=== PATIENT | male | born 1940 | race Caucasian/White ===

== ENCOUNTER → 2018-03-03 08:57 | Outpatient (CLI) | payer MEDICARE, OTHER, SELFPAY ==
[2018-03-03 10:18] LABS: Absolute Lymphocyte Count 4.66 X10^3/ul (0.83-4.51); Absolute Neutrophil Count 4.7 X10^3/uL (2.0-7.7); Basophil# 0.02 X10^3/uL; Basophil% 0.2 % (0-1); Eosinophil# 0.13 X10^3/uL; Eosinophils% 1.2 % (0-5); Hematocrit 48.4 % (40-54); Lymphocyte # 4.66 X10^3/ul (4.0); Lymphocyte % 43.9 % (19-41); Mean Corp Hgb Conc 33.1 g/gl (32-36); Mean Corpuscular Hgb 28.3 pg (27.0-32.0); Mean Corpuscular Volume 85.5 fL (80-94); Monocyte# 1.06 X10^3/uL; Neutrophil % 44.3 % (47-70); Platelet Count 242 K/mm3 (150-450); RBC Distribution Width CV 14.5 % (11.6-14.6); RBC Distribution Width SD 45.2 fl (35.1-43.9); Red Blood Count 5.66 M/mm3 (4.6-6.2); White Blood Count 10.6 K/mm3 (4.4-11.0)
[2018-03-03 10:19] LABS: POSITIVE COUNT NO; POSITIVE DIFFERENTIAL NO; POSITIVE MORPHOLOGY NO
[2018-03-03 10:53] LABS: ALB/GLOB Ratio 0.9 RATIO (0.9-2.4); AST(SGOT) 17 U/L (15-37); Alanine Aminotransfer ALT/SGPT 35 U/L (16-61); Albumin, Serum 4.1 g/dL (3.2-5.0); Alkaline Phosphatase 92 U/L (45-117); Anion Gap 8 (5-15); BUN 18 mg/dL (7-18); BUN/Creat Ratio 16.5 RATIO (10-20); Calcium,Total 8.9 mg/dL (8.5-10.1); Chloride 104 mmol/L (98-107); Creatinine, Serum 1.09 mg/dL (0.70-1.30); EST Glomerular Filtration Rate 70 mL/min (>60); Est Glom Filt Rate - Afr Amer 84 mL/min (>60); Globulin 4.4 g/dL (2.2-4.2); Glucose 122 mg/dL (74-106); Potassium 3.7 mmol/L (3.5-5.1); Protein, Total 8.5 g/dL (6.4-8.2); Sodium Level 137 mmol/L (136-145)
== END ==
PROVIDERS: Family Provider Internal Medicine; PCP Internal Medicine; Visit Provider Internal Medicine Rheumatology
DX: M35.00 Sjogren syndrome, unspecified (principal); M47.897 Other spondylosis, lumbosacral region; M17.0 Bilateral primary osteoarthritis of knee; M70.62 Trochanteric bursitis, left hip; M16.0 Bilateral primary osteoarthritis of hip; E03.9 Hypothyroidism, unspecified; E78.5 Hyperlipidemia, unspecified; E11.9 Type 2 diabetes mellitus without complications; R00.2 Palpitations; I10 Essential (primary) hypertension
CPT/HCPCS: 36415; 80053; 85025

== ENCOUNTER → 2018-03-14 10:30 | Outpatient (CLI) | payer MEDICARE, OTHER, SELFPAY ==
--- NOTE | 2018-03-14 10:30 | DT_ITS ---
This patient was seen during an EMR downtime March 14, 2018 - March 21, 2018. This patient may have a combination of paper and electronic documentation or all paper documentation. All documentation is viewable within the e-chart portion of [facility] for each patient visit.
--- NOTE | 2018-03-14 10:40 | RAD_ITS ---
STUDY: X-RAY - PELVIS AND LEFT HIP REASON FOR EXAM: Left hip and low back pain, no specific injury. TECHNIQUE: Radiological exam, hip, unilateral, with pelvis when performed; 2 or 3 views. COMPARISON: Radiograph report 04/08/2015. FINDINGS: There are pelvic phleboliths. There is enthesopathy of the iliac wings bilaterally. Normal bilateral superior and inferior pubic rami. There mild degenerative changes of the pubic symphysis. There is mild enthesopathy of the bilateral ischial tuberosities. There are very small marginal osteophytes of the femoral heads bilaterally. Normal left acetabulum. Normal left hip joint. RAD/Hip 2-3 Views with Pelvis IMPRESSION: Very small marginal osteophytes of the femoral heads bilaterally. Enthesopathy. Electronically Signed: Amilcar Alejandro MD at 12:57 EDT Tel , Service support ,
== END ==
PROVIDERS: Family Provider Internal Medicine; PCP Internal Medicine; Visit Provider Internal Medicine Rheumatology
DX: M35.00 Sjogren syndrome, unspecified (principal); M47.897 Other spondylosis, lumbosacral region; M17.0 Bilateral primary osteoarthritis of knee; M70.62 Trochanteric bursitis, left hip; M16.0 Bilateral primary osteoarthritis of hip; R00.2 Palpitations; E03.9 Hypothyroidism, unspecified; E78.5 Hyperlipidemia, unspecified; E11.9 Type 2 diabetes mellitus without complications; G62.9 Polyneuropathy, unspecified; I10 Essential (primary) hypertension
CPT/HCPCS: 73502

== ENCOUNTER → 2018-05-03 10:44 | Outpatient (CLI) | payer MEDICARE, OTHER, SELFPAY ==
--- NOTE | 2018-05-03 10:49 | ECHOD_ITS ---
Reason For Study: murmur Procedure This was a 2D Doppler, Color Flow transthoracic echocardiogram. The exam was of poor technical quality due to body habitus. The study was technically difficult. Exam performed in department. Left Ventricle Normal LV size. Mild concentric left ventricular hypertrophy. Left ventricular systolic function is normal. The estimated ejection fraction is 55 %. Diastolic function: considered indeterminate. No regional wall motion abnormalities noted. Right Ventricle Normal RV size. Normal systolic function. Atria Normal left atrium. Normal right atrium. No doppler evidence for ASD. Mitral Valve There is no mitral annular calcification. Normal mitral valve. Trivial mitral valve insufficiency. Tricuspid Valve Normal tricuspid valve. Mild tricuspid valve insufficiency. Right ventricular systolic pressure estimated to be 31 mmHg. Aortic Valve Trisinus/trileaflet aortic valve. Mild diffuse aortic valve thickening. Moderate diffuse aortic valve calcification. Aortic sclerosis, no stenosis. Trivial aortic valve insufficiency. Pulmonic Valve The pulmonic valve is not well visualized. Great Vessels Normal sized aortic root. Calcified aortic root. Pericardium/Pleural No pericardial effusion. MMode/2D Measurements & Calculations LVIDd: 5.2 cm IVSd: 1.3 cm LVOT diam: 2.6 cm LVIDs: 3.7 cm LVPWd: 1.4 cm LVOT area: 5.2 cm2 RVDd: 3.5 cm FS: 28.4 % Ao root diam: 3.6 cm LAV(MOD-bp): 58.1 ml LA A4 area: 18.3 cm2 LAV(MOD-bp) Indexed: 24.8 ml/m2 LAV(MOD-sp2): 66.1 ml LAV(MOD-sp4): 45.2 ml RA A4 area: 18.6 cm2 Doppler Measurements & Calculations MV E max christiano: 61.5 cm/sec Lat Peak E' Christiano: 8.8 cm/sec Med Peak E' Christiano: 7.2 cm/sec MV A max christiano: 92.4 cm/sec E/E' lat: 7.0 E/E' med: 8.5 MV E/A: 0.67 Ao V2 max: 206.6 cm/sec AI max christiano: 297.6 cm/sec LV V1 max: 98.6 cm/sec Ao max P.1 mmHg AI max P.5 mmHg LV V1 max P.9 mmHg Ao V2 mean: 135.9 cm/sec AI dec slope: 99.7 cm/sec2 LV V1 mean P.9 mmHg Ao mean P.2 mmHg AI P1/2t: 874.0 msec LV V1 mean: 66.0 cm/sec Ao V2 VTI: 41.8 cm LV V1 VTI: 22.1 cm EDUARDA(I,D): 2.8 cm2 EDUARDA(V,D): 2.5 cm2 SV(LVOT): 115.6 ml PA V2 max: 145.3 cm/sec TR max christiano: 265.1 cm/sec TR max P.2 mmHg Interpretation Summary The study was technically difficult. Left ventricular systolic function is normal. The estimated ejection fraction is 55 %. Mild concentric left ventricular hypertrophy. Trivial mitral valve insufficiency. Mild tricuspid valve insufficiency. Aortic sclerosis, no stenosis. Trivial aortic valve insufficiency. Calcified aortic root. Right ventricular systolic pressure estimated to be 31 mmHg. Diastolic function: considered indeterminate. Ordering Physician: Vinayak Elise Referring Physician: Cadence Tavarez Performed By: Silvia Florez, RDCS, RVT
== END ==
PROVIDERS: Family Provider Internal Medicine; PCP Internal Medicine; Visit Provider Internal Medicine Cardiovascular Disease
DX: I25.10 Atherosclerotic heart disease of native coronary artery without angina pectoris (principal); I35.9 Nonrheumatic aortic valve disorder, unspecified
CPT/HCPCS: 93306

== ENCOUNTER → 2018-05-13 14:57 | Outpatient (CLI) | payer MEDICARE, OTHER, SELFPAY ==
--- NOTE | 2018-05-13 15:01 | VDLE_ITS ---
Reason For Study: LLE pain RIGHT LEFT CFV is compressible, spontaneous, phasic, GSV is normal. competent and demonstrates normal CFV is compressible, spontaneous, phasic, augmentation. competent, and demonstrates normal Procedure augmentation. Exam performed in department. FV is compressible, spontaneous, phasic, The exam was diagnostic. competent and demonstrates normal A preliminary report was called and/or faxed augmentation. to Dr. Valentin Alvarado @ [phone] @ 3:30 pm. POP V is compressible, spontaneous, phasic, competent and demonstrates normal augmentation. T/P Trunk is compressible. PTV is compressible. LT PerV is compressible. Interpretation Summary There is no evidence of left lower extremity deep vein thrombosis. Left greater saphenous vein appears patent and compressible segmentally. Normal flow patterns right common femoral vein. Ordering Physician: Deonte Alvarado Referring Physician: Cadence Tavarez Performed By: Silvia Florez, NELA, RVT
== END ==
PROVIDERS: Family Provider Internal Medicine; PCP Internal Medicine; Visit Provider Orthopaedic Surgery
DX: M79.605 Pain in left leg (principal)
CPT/HCPCS: 93971

== ENCOUNTER → 2018-08-12 15:13 | Outpatient (CLI) | payer MEDICARE, OTHER, SELFPAY ==
[2018-08-12 17:38] LABS: Absolute Lymphocyte Count 3.87 X10^3/ul (0.83-4.51); Basophil# 0.03 X10^3/uL; Basophil% 0.4 % (0-1); Eosinophil# 0.15 X10^3/uL; Eosinophils% 2.2 % (0-5); Hematocrit 45.7 % (40-54); Hemoglobin 15.3 g/dl (13.0-16.5); Lymphocyte # 3.87 X10^3/ul (4.0); Lymphocyte % 56.3 % (19-41); Mean Corp Hgb Conc 33.5 g/gl (32-36); Mean Corpuscular Hgb 28.2 pg (27.0-32.0); Mean Corpuscular Volume 84.3 fL (80-94); Monocyte% 11.6 % (0-10); Neutrophil # 2.01 X10^3/uL (2.7-7.7); Neutrophil % 29.4 % (47-70); POSITIVE COUNT NO; POSITIVE DIFFERENTIAL NO; POSITIVE MORPHOLOGY NO; Platelet Count 243 K/mm3 (150-450); RBC Distribution Width CV 14.2 % (11.6-14.6); RBC Distribution Width SD 43.5 fl (35.1-43.9); Red Blood Count 5.42 M/mm3 (4.6-6.2); White Blood Count 6.9 K/mm3 (4.4-11.0)
[2018-08-12 17:56] LABS: ALB/GLOB Ratio 0.9 RATIO (0.9-2.4); AST(SGOT) 24 U/L (15-37); Alanine Aminotransfer ALT/SGPT 42 U/L (16-61); Alkaline Phosphatase 89 U/L (45-117); Anion Gap 7 (5-15); BUN 14 mg/dL (7-18); BUN/Creat Ratio 15.1 RATIO (10-20); Chloride 103 mmol/L (98-107); Creatinine, Serum 0.93 mg/dL (0.70-1.30); EST Glomerular Filtration Rate 84 mL/min (>60); Est Glom Filt Rate - Afr Amer 101 mL/min (>60); Globulin 4.4 g/dL (2.2-4.2); Glucose 85 mg/dL (74-106); Potassium 3.8 mmol/L (3.5-5.1); Protein, Total 8.4 g/dL (6.4-8.2); Sodium Level 140 mmol/L (136-145)
== END ==
PROVIDERS: Family Provider Internal Medicine; PCP Internal Medicine; Referring Provider Internal Medicine Rheumatology; Visit Provider Internal Medicine Rheumatology
DX: M35.00 Sjogren syndrome, unspecified (principal); M47.897 Other spondylosis, lumbosacral region; M17.0 Bilateral primary osteoarthritis of knee; M70.62 Trochanteric bursitis, left hip; M16.0 Bilateral primary osteoarthritis of hip
CPT/HCPCS: 36415; 80053; 85025

== ENCOUNTER → 2019-01-30 07:56 | Outpatient (CLI) | payer MEDICARE, OTHER, SELFPAY ==
[2019-01-30 10:23] LABS: Absolute Lymphocyte Count 3.98 X10^3/ul (0.83-4.51); Absolute Neutrophil Count 2.6 X10^3/uL (2.0-7.7); Basophil# 0.02 X10^3/uL; Basophil% 0.3 % (0-1); Eosinophil# 0.23 X10^3/uL; Eosinophils% 3.1 % (0-5); Hematocrit 47.7 % (40-54); Hemoglobin 16.2 g/dl (13.0-16.5); Lymphocyte # 3.98 X10^3/ul (4.0); Lymphocyte % 53.1 % (19-41); Mean Corpuscular Hgb 28.8 pg (27.0-32.0); Mean Corpuscular Volume 84.7 fL (80-94); Monocyte# 0.69 X10^3/uL; Monocyte% 9.2 % (0-10); Neutrophil # 2.57 X10^3/uL (2.7-7.7); Neutrophil % 34.2 % (47-70); Platelet Count 236 K/mm3 (150-450); RBC Distribution Width CV 13.9 % (11.6-14.6); RBC Distribution Width SD 43.2 fl (35.1-43.9); Red Blood Count 5.63 M/mm3 (4.6-6.2); White Blood Count 7.5 K/mm3 (4.4-11.0)
[2019-01-30 10:26] LABS: POSITIVE COUNT NO; POSITIVE DIFFERENTIAL NO; POSITIVE MORPHOLOGY NO
[2019-01-30 10:27] LABS: Color, Urine Yellow (Yellow); Glucose, Dipstick Normal (Normal); Ketone-Dipstick Negative (Negative); Leukocyte Esterase-Dipstick Negative /ul (Negative); Nitrite-Dipstick Negative (Negative); Occult Blood-Urine Negative /ul (Negative); Protein-Dipstick Negative (Negative); Specific Gravity, Urine 1.015 (1.002-1.030); Urine Bilirubin Dipstick Negative (Negative); Urine Clarity Clear (Clear); Urine Urobilinogen Normal (Normal)
[2019-01-30 10:42] LABS: Vitamin B12 1086 pg/mL (211-911); Vitamin D,25 Hydroxy 58.8 ng/mL (29.95-100.01)
[2019-01-30 10:45] LABS: Microalbumin,Random Urine 7.7 mg/L (NO RANGE EST.); Microalbumin:Creatinine Ratio 5.3 mg/g CRE (<30 mg/g CRE)
[2019-01-30 10:53] LABS: ALB/GLOB Ratio 0.9 RATIO (0.9-2.4); AST(SGOT) 22 U/L (15-37); Alanine Aminotransfer ALT/SGPT 41 U/L (16-61); Albumin, Serum 3.9 g/dL (3.2-5.0); Alkaline Phosphatase 112 U/L (45-117); Anion Gap 5 (5-15); BUN 16 mg/dL (7-18); BUN/Creat Ratio 15.1 RATIO (10-20); Calcium,Total 9.4 mg/dL (8.5-10.1); Chloride 104 mmol/L (98-107); Creatinine, Serum 1.06 mg/dL (0.70-1.30); EST Glomerular Filtration Rate 72 mL/min (>60); Est Glom Filt Rate - Afr Amer 87 mL/min (>60); Free T3 2.5 pg/mL (2.18-3.98); Globulin 4.5 g/dL (2.2-4.2); Glucose 104 mg/dL (74-106); Potassium 4.2 mmol/L (3.5-5.1); Protein, Total 8.4 g/dL (6.4-8.2); Sodium Level 138 mmol/L (136-145); T4 Free Direct 1.18 ng/dL (0.76-1.46); Thyroid Stim Hormone (TSH) 1.68 uIU/mL (0.358-3.74)
[2019-01-30 13:20] LABS: Bacteria 0 SEEN /hpf (None Seen); Mucous, Urine 0 SEEN /hpf (<or=2+); Red Blood Cells-Urine 0 SEEN /hpf (0-5); Squamous Epithelial Cells - UA 0 SEEN /hpf (0-5); White Blood Cells 0 SEEN /hpf (0-5)
[2019-01-31 16:07] LABS: CHOLESTEROL TOTAL 202 mg/dL (100-199); HDL-C 38 mg/dL (>39); HDL-P TOTAL 29.3 umol/L (>=30.5); SMALL LDL-P 316 nmol/L (<=527); TRIGLYCERIDES 216 mg/dL (0-149)
[2019-02-01 17:19] LABS: INSULIN RESISTANCE SCORE 74 (<=45); LDL SIZE 19.7 nm (>20.5); LDL-C 121 mg/dL (0-99); LDL-P 988 nmol/L (<1000)
== END ==
PROVIDERS: Family Provider Internal Medicine; PCP Internal Medicine; Referring Provider Internal Medicine Rheumatology; Visit Provider Internal Medicine Rheumatology
DX: M35.00 Sjogren syndrome, unspecified (principal); M47.897 Other spondylosis, lumbosacral region; M17.0 Bilateral primary osteoarthritis of knee; M70.62 Trochanteric bursitis, left hip; M16.0 Bilateral primary osteoarthritis of hip; E03.9 Hypothyroidism, unspecified; E55.9 Vitamin D deficiency, unspecified; I10 Essential (primary) hypertension; E53.8 Deficiency of other specified B group vitamins; E78.00 Pure hypercholesterolemia, unspecified; E11.42 Type 2 diabetes mellitus with diabetic polyneuropathy
CPT/HCPCS: 36415; 80053; 80061; 81001; 81002; 82043; 82306; 82570; 82607; 83704; 84439; 84443; 84481; 85025

== ENCOUNTER → 2019-07-25 08:24 | Outpatient (CLI) | payer MEDICARE, OTHER, SELFPAY ==
[2019-05-17 15:12] VITALS: BMI 29.0
[2019-07-25 10:04] LABS: Absolute Lymphocyte Count 4.02 X10^3/uL (0.83-4.51); Absolute Neutrophil Count 2.8 X10^3/uL (2.0-7.7); Basophil# 0.05 X10^3/uL; Basophil% 0.6 % (0-1); Eosinophils% 1.3 % (0-5); Hemoglobin 14.9 g/dL (13.0-16.5); Lymphocyte # 4.02 X10^3/ul (4.0); Lymphocyte % 51.5 % (19-41); Mean Corp Hgb Conc 32.4 g/dL (32-36); Mean Corpuscular Hgb 27.2 pg (27.0-32.0); Mean Corpuscular Volume 84.1 fL (80-94); Mean Platelet Vol. 9.1 fl (6.2-12.0); Monocyte# 0.83 X10^3/uL; Monocyte% 10.6 % (0-10); NRBC Flagged by Analyzer 0 % (0-5); Neutrophil # 2.78 X10^3/uL (2.7-7.7); Neutrophil % 35.7 % (47-70); Platelet Count 252 K/mm3 (150-450); Red Blood Count 5.47 M/mm3 (4.6-6.2); White Blood Count 7.8 K/mm3 (4.4-11.0)
[2019-07-25 10:23] LABS: Vitamin B12 396 pg/mL (211-911)
[2019-07-25 10:45] LABS: ALB/GLOB Ratio 0.9 RATIO (0.9-2.4); AST(SGOT) 24 U/L (15-37); Alanine Aminotransfer ALT/SGPT 35 U/L (16-61); Albumin, Serum 3.8 g/dL (3.2-5.0); Alkaline Phosphatase 98 U/L (45-117); Anion Gap 6 (5-15); BUN 18 mg/dL (7-18); BUN/Creat Ratio 18.7 RATIO (10-20); Calcium,Total 8.9 mg/dL (8.5-10.1); Chloride 105 mmol/L (98-107); Cholesterol 180 mg/dL (200); Creatinine, Serum 0.96 mg/dL (0.70-1.30); EST Glomerular Filtration Rate 80 mL/min (>60); Est Glom Filt Rate - Afr Amer 97 mL/min (>60); Globulin 4.2 g/dL (2.2-4.2); Glucose 106 mg/dL (74-106); High Density Lipoprotein 42 mg/dL; Potassium 3.8 mmol/L (3.5-5.1); Sodium Level 139 mmol/L (136-145); Thyroid Stim Hormone (TSH) 1.85 uIU/mL (0.358-3.74); Triglycerides 224 mg/dL; Very Low Density Lipoprotein 45 mg/dL (5-40)
== END ==
PROVIDERS: Family Provider Nurse Practitioner; PCP Nurse Practitioner; Referring Provider Nurse Practitioner; Visit Provider Nurse Practitioner
DX: I10 Essential (primary) hypertension (principal); E53.8 Deficiency of other specified B group vitamins; E03.9 Hypothyroidism, unspecified
CPT/HCPCS: 36415; 80053; 80061; 82607; 82746; 84443; 85025

== ENCOUNTER → 2019-08-09 10:41 | Outpatient (CLI) | payer MEDICARE, OTHER, SELFPAY ==
[2019-05-17 15:12] VITALS: BMI 29.0
[2019-08-09 12:27] LABS: Absolute Lymphocyte Count 3.77 X10^3/uL (0.83-4.51); Absolute Neutrophil Count 2.5 X10^3/uL (2.0-7.7); Basophil# 0.03 X10^3/uL; Basophil% 0.4 % (0-1); Eosinophil# 0.07 X10^3/uL; Hematocrit 45.3 % (40-54); Hemoglobin 14.6 g/dL (13.0-16.5); Lymphocyte # 3.77 X10^3/ul (4.0); Lymphocyte % 52.1 % (19-41); Mean Corp Hgb Conc 32.2 g/dL (32-36); Mean Corpuscular Hgb 27.3 pg (27.0-32.0); Mean Corpuscular Volume 84.8 fL (80-94); Mean Platelet Vol. 9.2 fl (6.2-12.0); Monocyte# 0.87 X10^3/uL; NRBC Flagged by Analyzer 0 % (0-5); Neutrophil # 2.47 X10^3/uL (2.7-7.7); Neutrophil % 34.2 % (47-70); Platelet Count 251 K/mm3 (150-450); RBC Distribution Width CV 14.3 % (11.6-14.6); RBC Distribution Width SD 43.8 fl (35.1-43.9); Red Blood Count 5.34 M/mm3 (4.6-6.2); White Blood Count 7.2 K/mm3 (4.4-11.0)
[2019-08-09 13:01] LABS: AST(SGOT) 23 U/L (15-37); Alanine Aminotransfer ALT/SGPT 33 U/L (16-61); Alkaline Phosphatase 90 U/L (45-117); Anion Gap 6 (5-15); BUN 18 mg/dL (7-18); BUN/Creat Ratio 18.4 RATIO (10-20); Calcium,Total 9.6 mg/dL (8.5-10.1); Chloride 104 mmol/L (98-107); Creatinine, Serum 0.98 mg/dL (0.70-1.30); EST Glomerular Filtration Rate 79 mL/min (>60); Est Glom Filt Rate - Afr Amer 95 mL/min (>60); Globulin 4.2 g/dL (2.2-4.2); Glucose 81 mg/dL (74-106); Potassium 3.9 mmol/L (3.5-5.1); Protein, Total 8.2 g/dL (6.4-8.2); Sodium Level 140 mmol/L (136-145)
== END ==
PROVIDERS: Family Provider Nurse Practitioner; PCP Nurse Practitioner; Referring Provider Internal Medicine Rheumatology; Visit Provider Internal Medicine Rheumatology
DX: M35.00 Sjogren syndrome, unspecified (principal); M47.897 Other spondylosis, lumbosacral region; M17.0 Bilateral primary osteoarthritis of knee; M70.62 Trochanteric bursitis, left hip; M16.0 Bilateral primary osteoarthritis of hip; E03.9 Hypothyroidism, unspecified; E78.5 Hyperlipidemia, unspecified; E11.9 Type 2 diabetes mellitus without complications; G62.9 Polyneuropathy, unspecified; I10 Essential (primary) hypertension; R00.2 Palpitations
CPT/HCPCS: 36415; 80053; 85025

== ENCOUNTER → 2019-11-28 11:18 | Outpatient (CLI) | payer MEDICARE, OTHER, SELFPAY ==
[2019-05-17 15:12] VITALS: BMI 29.0
[2019-11-28 13:57] LABS: Vitamin B12 704 pg/mL (211-911)
== END ==
PROVIDERS: PCP Nurse Practitioner; Referring Provider Nurse Practitioner; Visit Provider Nurse Practitioner
DX: Z12.11 Encounter for screening for malignant neoplasm of colon (principal); E53.8 Deficiency of other specified B group vitamins
CPT/HCPCS: 36415; 82607; 82746

== ENCOUNTER → 2019-12-18 09:50 | Outpatient (CLI) | payer MEDICARE, OTHER, SELFPAY ==
[2019-05-17 15:12] VITALS: BMI 29.0
--- NOTE | 2019-12-18 09:53 | RAD_ITS ---
STUDY: X-RAY - PELVIS REASON FOR EXAM: Male, 79 years old. chronic pain, left hip especially TECHNIQUE: One view of the pelvis was obtained. COMPARISON: None. FINDINGS: There is a non-specific bowel gas pattern. Normal visualized soft tissue structures. Normal bilateral iliac wings, sacroiliac joints and visualized sacrum. Normal visualized bilateral superior and inferior pubic rami. Normal pubic symphysis. Normal ischial tuberosities. Normal visualized right femoral head. Normal right acetabulum. Normal right hip joint. There are mild arthritic changes of the left hip. RAD/Pelvis 1 or 2 Views IMPRESSION: Mild arthritic changes of the left hip. Electronically Signed: Addy Ramires MD at 19:15 EDT , Service support ,
== END ==
PROVIDERS: PCP Nurse Practitioner; Referring Provider Internal Medicine Rheumatology; Visit Provider Internal Medicine Rheumatology
DX: M35.00 Sjogren syndrome, unspecified (principal); M47.897 Other spondylosis, lumbosacral region; M17.0 Bilateral primary osteoarthritis of knee; M70.62 Trochanteric bursitis, left hip; M16.0 Bilateral primary osteoarthritis of hip; R00.2 Palpitations; E03.9 Hypothyroidism, unspecified; E78.5 Hyperlipidemia, unspecified; E11.9 Type 2 diabetes mellitus without complications; G62.9 Polyneuropathy, unspecified; I10 Essential (primary) hypertension
CPT/HCPCS: 72170

== ENCOUNTER → 2020-04-04 08:03 | Outpatient (CLI) | payer MEDICARE, OTHER, SELFPAY ==
[2019-05-17 15:12] VITALS: BMI 29.0
[2020-04-04 10:20] LABS: Absolute Neutrophil Count 2.7 X10^3/uL (2.0-7.7); Basophil# 0.03 X10^3/uL; Basophil% 0.4 % (0-1); Eosinophil# 0.16 X10^3/uL; Eosinophils% 2.2 % (0-5); Hematocrit 47.1 % (40-54); Hemoglobin 14.9 g/dL (13.0-16.5); Lymphocyte % 48.3 % (19-41); Mean Corp Hgb Conc 31.6 g/dL (32-36); Mean Corpuscular Hgb 27.9 pg (27.0-32.0); Mean Platelet Vol. 9.4 fl (6.2-12.0); NRBC Flagged by Analyzer 0 % (0-5); Neutrophil # 2.74 X10^3/uL (2.7-7.7); Platelet Count 282 K/mm3 (150-450); RBC Distribution Width CV 14.5 % (11.6-14.6); RBC Distribution Width SD 46.2 fl (35.1-43.9); Red Blood Count 5.35 M/mm3 (4.6-6.2); White Blood Count 7.2 K/mm3 (4.4-11.0)
[2020-04-04 10:45] LABS: ALB/GLOB Ratio 0.9 RATIO (0.9-2.4); AST(SGOT) 16 U/L (15-37); Alanine Aminotransfer ALT/SGPT 35 U/L (16-61); Albumin, Serum 3.8 g/dL (3.2-5.0); Alkaline Phosphatase 96 U/L (45-117); Anion Gap 7 (5-15); BUN 13 mg/dL (7-18); BUN/Creat Ratio 13.6 RATIO (10-20); Calcium,Total 9.4 mg/dL (8.5-10.1); Chloride 104 mmol/L (98-107); Cholesterol 208 mg/dL (200); Creatinine, Serum 0.95 mg/dL (0.70-1.30); EST Glomerular Filtration Rate 81 mL/min (>60); Est Glom Filt Rate - Afr Amer 98 mL/min (>60); Globulin 4.4 g/dL (2.2-4.2); Glucose 123 mg/dL (74-106); High Density Lipoprotein 38 mg/dL; PSA,Total - Annual Screen 4.61 ng/mL (0.00-4.00); Potassium 3.9 mmol/L (3.5-5.1); Protein, Total 8.2 g/dL (6.4-8.2); Sodium Level 139 mmol/L (136-145); Triglycerides 314 mg/dL; Very Low Density Lipoprotein 63 mg/dL (5-40)
== END ==
PROVIDERS: PCP Nurse Practitioner; Referring Provider Nurse Practitioner; Visit Provider Nurse Practitioner
DX: E11.42 Type 2 diabetes mellitus with diabetic polyneuropathy (principal); E55.9 Vitamin D deficiency, unspecified; Z12.5 Encounter for screening for malignant neoplasm of prostate
CPT/HCPCS: 36415; 80053; 80061; 82306; 84153; 85025; G0103

== ENCOUNTER → 2020-04-29 11:23 | Outpatient (CLI) | payer MEDICARE, OTHER, SELFPAY ==
[2019-05-17 15:12] VITALS: BMI 29.0
[2020-04-29 13:03] LABS: PSA,Total- Diagnostic 5.22 ng/mL (0.0-4.0)
== END ==
PROVIDERS: PCP Nurse Practitioner; Referring Provider Urology; Visit Provider Urology
DX: R97.20 Elevated prostate specific antigen [PSA] (principal)
CPT/HCPCS: 36415; 84153

== ENCOUNTER → 2020-07-23 07:37 | Outpatient (CLI) | payer MEDICARE, OTHER, SELFPAY ==
[2020-05-15 15:12] VITALS: BMI 27.9
[2020-07-23 10:31] LABS: Cholesterol 147 mg/dL (200); High Density Lipoprotein 45 mg/dL; Triglycerides 171 mg/dL; Very Low Density Lipoprotein 34 mg/dL (5-40)
[2020-07-23 12:49] LABS: Vitamin D,25 Hydroxy 70.3 ng/mL
== END ==
PROVIDERS: PCP Nurse Practitioner; Referring Provider Nurse Practitioner; Visit Provider Nurse Practitioner
DX: I10 Essential (primary) hypertension (principal); E55.9 Vitamin D deficiency, unspecified
CPT/HCPCS: 36415; 80061; 82306

== ENCOUNTER → 2020-11-04 14:30 | Outpatient (CLI) | payer MEDICARE, OTHER, SELFPAY ==
[2020-05-15 15:12] VITALS: BMI 27.9
[2020-11-04 17:56] LABS: Absolute Neutrophil Count 4.1 X10^3/uL (2.0-7.7); Basophil# 0.03 X10^3/uL; Basophil% 0.3 % (0-1); Eosinophil# 0.18 X10^3/uL; Hematocrit 47.8 % (40-54); Hemoglobin 15.1 g/dL (13.0-16.5); Lymphocyte % 42.3 % (19-41); Mean Corp Hgb Conc 31.6 g/dL (32-36); Mean Corpuscular Hgb 27.6 pg (27.0-32.0); Mean Corpuscular Volume 87.4 fL (80-94); Mean Platelet Vol. 9.6 fl (6.2-12.0); Monocyte# 0.86 X10^3/uL; Monocyte% 9.6 % (0-10); NRBC Flagged by Analyzer 0 % (0-5); Neutrophil # 4.08 X10^3/uL (2.7-7.7); Neutrophil % 45.5 % (47-70); Platelet Count 285 K/mm3 (150-450); RBC Distribution Width CV 13.5 % (11.6-14.6); RBC Distribution Width SD 43.8 fl (35.1-43.9); Red Blood Count 5.47 M/mm3 (4.6-6.2)
[2020-11-04 18:15] LABS: Vitamin B12 1499 pg/mL (211-911)
[2020-11-04 18:25] LABS: ALB/GLOB Ratio 0.9 RATIO (0.9-2.4); AST(SGOT) 19 U/L (15-37); Alanine Aminotransfer ALT/SGPT 31 U/L (16-61); Albumin, Serum 3.9 g/dL (3.2-5.0); Alkaline Phosphatase 108 U/L (45-117); Anion Gap 8 (5-15); BUN 17 mg/dL (7-18); BUN/Creat Ratio 15.2 RATIO (10-20); Chloride 103 mmol/L (98-107); Creatinine, Serum 1.12 mg/dL (0.70-1.30); EST Glomerular Filtration Rate 67 mL/min (>60); Est Glom Filt Rate - Afr Amer 81 mL/min (>60); Globulin 4.4 g/dL (2.2-4.2); Glucose 90 mg/dL (74-106); Potassium 3.7 mmol/L (3.5-5.1); Protein, Total 8.3 g/dL (6.4-8.2); Sodium Level 139 mmol/L (136-145); Thyroid Stim Hormone (TSH) 1.37 uIU/mL (0.358-3.74)
== END ==
PROVIDERS: PCP Nurse Practitioner; Referring Provider Nurse Practitioner; Visit Provider Nurse Practitioner
DX: I95.9 Hypotension, unspecified (principal); E53.8 Deficiency of other specified B group vitamins
CPT/HCPCS: 36415; 80053; 82607; 82746; 84443; 85025

== ENCOUNTER 2021-02-24 09:18 | Emergency (ER) | payer MEDICARE, OTHER, SELFPAY ==
[2020-05-15 15:12] VITALS: BMI 27.9
[2021-02-24 09:18] VITALS: BP 139/83; PULSE 77; RESP 19; TEMP 36.4; O2SAT 98; BMI 27.5
--- NOTE | 2021-02-24 09:34 | EKG12_ITS ---
Test Reason : DIZZINESS Blood Pressure : / mmHG Vent. Rate : 072 BPM Atrial Rate : 072 BPM P-R Int : 200 ms QRS Dur : 090 ms QT Int : 420 ms P-R-T Axes : 036 043 054 degrees QTc Int : 459 ms Normal sinus rhythm Normal ECG Confirmed by DARBY JOHNSON, OSMANY ([id number]), editor & co founder CHRIS OROZCO ([id number]) on 02/25/2021 10:08:05 AM Referred By: JOANN Confirmed By:OSMANY PASTOR MD
--- NOTE | 2021-02-24 09:36 | EX.ED.DYSGE1 ---
HPI History of Present Illness Chief Complaint: Weakness Narrative Narrative: Patient is an 80-year-old male who presents to the emergency department for feeling like he could pass out. He did feel nauseous. His symptoms started around 5 AM this morning. He denies ever having this happen before in the past. He did try to eat some food thinking this would help but he still felt like he might pass out. This was when he was up walking around. He denies any chest pain, shortness of breath or heart palpitations. He did take his blood pressure and his pulse at the time and states that his pulse was in the 50s which is abnormal for him. He denies any abdominal pain associated with this. Denies any recent illness. No cough, fever/chills. He denies any diarrhea. No black tarry stools or blood in the stool. No urinary symptoms. He denies any leg swelling or calf pain. No headache or vision changes with this. [facility] Medical History (Updated 02/24/21 @ 13:[address] Claus Hunter, ) Atherosclerotic heart disease of [place] coronary artery without angina pectoris BPH without obstruction/lower urinary tract symptoms Chronic obstructive pulmonary disease with acute exacerbation CVA (cerebral vascular accident) Dizziness and giddiness Essential hypertension Fatigue GERD (gastroesophageal reflux disease) Hyperlipidemia Hypothyroidism ischemic stroke Nonrheumatic aortic (valve) insufficiency Sjogrens syndrome Type II diabetes mellitus, uncontrolled Home Medications clopidogrel 75 mg PO DAILY 08/27/15 [History Last Taken Unknown] levothyroxine 88 mcg PO DAILY 08/27/15 [History Last Taken Unknown] cevimeline 30 mg capsule 30 mg PO BID cap 04/11/18 [History Last Taken Unknown] cyanocobalamin (vitamin B-12) 1,000 mcg/mL injection solution 100 mcg IM QMONTH 04/14/18 [History Last Taken Unknown] cholecalciferol (vitamin D3) 50 mcg (2,000 unit) tablet 50 mcg PO DAILY 05/15/20 [History Last Taken Unknown] amlodipine 2.5 mg PO DAILY 02/24/21 [History Last Taken Unknown] Allergy/AdvReac Type Severity Reaction Status Date / Time acetaminophen [From Percocet] AdvReac Severe Vomiting,Na Verified 02/24/21 09:27 usea oxycodone [From Percocet] AdvReac Severe Vomiting,Na Verified 02/24/21 09:27 usea clindamycin AdvReac Swelling Verified 02/24/21 09:27 codeine AdvReac HALLUCINATI Verified 02/24/21 09:27 ONS indomethacin AdvReac Vomiting Verified 02/24/21 09:27 Family History Father Myocardial infarction Mother CAD (coronary artery disease) Brother CHF (congestive heart failure) Sister CAD (coronary artery disease) Other Diabetes Heart disease Hypertension Thyroid disorder Surgical History History of cataract surgery History of knee surgery History of tonsillectomy Social History Smoking Status: Never smoker alcohol intake: former details: stopped drinking 1988 ROS ROS ED Constitutional Constitutional ED: Denies chills or fever(s) Eyes Eyes: Denies change in vision ENT ENT ED: Denies epistaxis or rhinorrhea Cardiovascular Cardiovascular: Denies chest pain or palpitations Respiratory/Chest Respiratory/Chest: Denies cough, dyspnea or dyspnea on exertion Gastrointestinal Gastrointestinal: Reports nausea; Denies abdominal pain, diarrhea or vomiting Genitourinary Genitourinary ED: Denies dysuria, hematuria or urinary frequency Musculoskeletal Musculoskeletal: Denies back pain or neck pain Integumentary Denies rash Neurologic Neurologic: Denies dizziness, headache(s) or weakness EXAM Physical Exam Const Vital Signs: 02/24/21 09:18 02/24/21 09:27 02/24/21 10:47 Temperature 97.6 F L Temperature Source Oral Pulse Rate 77 Pulse Rate [Lying] 67 Pulse Rate [Sitting] 68 Pulse Rate [Standing] 80 Respiratory Rate 19 H Respiratory Effort Normal Non-Labored Respiratory Pattern Normal Blood Pressure 139/83 H Blood Pressure [Lying] 133/94 H Blood Pressure [Sitting] 146/84 H Blood Pressure [Standing] 122/88 H Blood Pressure Mean 101 Blood Pressure Mean [Lying] 107 Blood Pressure Mean [Sitting] 104 Blood Pressure Mean [Standing] 99 Pulse Ox 98 Oxygen Delivery Method Room Air 02/24/21 11:26 02/24/21 13:33 Temperature Temperature Source Pulse Rate 64 67 Pulse Rate [Lying] Pulse Rate [Sitting] Pulse Rate [Standing] Respiratory Rate 20 H 14 Respiratory Effort Respiratory Pattern Blood Pressure 133/83 H 152/93 H Blood Pressure [Lying] Blood Pressure [Sitting] Blood Pressure [Standing] Blood Pressure Mean 99 Blood Pressure Mean [Lying] Blood Pressure Mean [Sitting] Blood Pressure Mean [Standing] Pulse Ox 94 94 Oxygen Delivery Method Room Air Positive well nourished and well developed General Appearance ED: well developed and NAD HEENT Reports normocephalic, head/scalp atraumatic and moist mucous membranes Eyes PERRL and EOMs intact bilaterally Neck no lymphadenopathy and supple General: Negative for tenderness Chest Wall inspection of chest normal Resp normal respiratory effort and clear to auscultation bilaterally Auscultation: Negative for rales, rhonchi or wheezes Cardio regular rate, regular rhythm and no murmurs GI normal to inspection, nondistended, normoactive bowel sounds and non-tender Palpation: soft; Negative for guarding or rebound tenderness present Back/Spine no CVA tenderness Extremity normal to inspection General Extremety ED: Negative for edema or tenderness General Extremity: Negative for edema Neuro oriented x3, CN's II-XII intact bilaterally and no sensory deficits noted Sensorium / Orientation: alert Motor Exam: strength 5/5 throughout Psych mental status grossly normal Skin no rashes or lesions noted MDM MDM MDM Narrative Medical decision making narrative: Patient presents to the emergency department for lightheadedness and also nausea. Upon arrival to the emergency department vital signs within normal limits. He is in no acute distress on exam. He has no focal deficits. Will perform orthostatic vitals as well as a basic lab work-up including EKG. Patient is not anemic on today's work-up. Besides his glucose being mildly elevated no significant electrolyte abnormality. His troponin is negative. I have very low concern for ACS, DVT/PE, aortic catastrophe, stroke or esophageal rupture causing patient's symptoms. His orthostatic vitals were mildly positive so he was treated with a bolus of normal saline. He was feeling better after this. He was able to ambulate without difficulty around the room. He does feel comfortable going home at this time. Return precautions are reviewed with him including any worsening symptoms or developing chest pain, shortness of breath. He otherwise is to follow-up with his PCP. He understands and is agreeable this plan. Discharged home in stable condition. All questions were answered. Lab Data Labs: Laboratory Results - last 24 hr 02/24/21 02/24/21 09:45 09:45 WBC 7.5 RBC 5.49 Hgb 15.0 Hct 46.8 MCV 85.2 MCH 27.3 MCHC 32.1 RDW Std Deviation 42.3 RDW Coeff of Kam 13.5 Plt Count 249 MPV 8.8 Immature Gran % (Auto) 0.400 Neut % (Auto) 56.0 Lymph % (Auto) 34.4 Yancey % (Auto) 6.8 Eos % (Auto) 2.0 Baso % (Auto) 0.4 Absolute Neuts (auto) 4.2 Absolute Lymphs (auto) 2.57 Nucleated RBC % 0 Sodium 139 Potassium 3.5 Chloride 104 Carbon Dioxide 29.0 Anion Gap 6 BUN 14 Creatinine 0.88 Estim Creat Clear Calc 78.69 Est GFR (MDRD) Af Amer 108 Est GFR (MDRD) Non-Af 89 BUN/Creatinine Ratio 16.0 Glucose 186 H Calcium 9.0 Total Bilirubin 0.30 AST 17 ALT 25 Alkaline Phosphatase 106 Troponin I < 0.015 Total Protein 7.8 Albumin 3.5 Globulin 4.3 H Albumin/Globulin Ratio 0.8 L EKG Initial EKG: Comments: Rate of 72 bpm normal sinus rhythm. Normal intervals. Normal axis. No significant ST elevations or depressions. No T wave abnormalities. Discharge Plan Triage Chief Complaint: Weakness ED Provider: Claus Hunter Dx/Rx/DC Orders Clinical Impression: Lightheadedness Instructions: ED Dizziness, Uncertain Cause Prescriptions: No Action cyanocobalamin (vitamin B-12) 1,000 mcg/mL solution 100 mcg IM QMONTH RF: 0 cholecalciferol (vitamin D3) 50 mcg (2,000 unit) tablet 50 mcg PO DAILY RF: 0 clopidogrel 75 MG tablet 75 mg PO DAILY RF: 0 levothyroxine 88 MCG tablet 88 mcg PO DAILY RF: 0 cevimeline 30 mg capsule 30 mg PO BID RF: 0 amlodipine 2.5 mg tablet 2.5 mg PO DAILY RF: 0 Primary Care Provider: Shantelle Rueda NP Referrals: Shantelle Rueda SENIOR ENERGY TRADER, SENIOR ENERGY TRADER-C [Primary Care Provider] - 1-2 Days if not improving Disposition Disposition: Home, self care Discharge Date/Time: 02/24/21 13:34
[2021-02-24 09:54] LABS: Absolute Lymphocyte Count 2.57 X10^3/uL (0.83-4.51); Absolute Neutrophil Count 4.2 X10^3/uL (2.0-7.7); Basophil# 0.03 X10^3/uL; Basophil% 0.4 % (0-1); Eosinophil# 0.15 X10^3/uL; Hematocrit 46.8 % (40-54); Lymphocyte # 2.57 X10^3/ul (0.83-4.51); Lymphocyte % 34.4 % (19-41); Mean Corp Hgb Conc 32.1 g/dL (32-36); Mean Corpuscular Hgb 27.3 pg (27.0-32.0); Mean Corpuscular Volume 85.2 fL (80-94); Mean Platelet Vol. 8.8 fl (6.2-12.0); Monocyte# 0.51 X10^3/uL; Monocyte% 6.8 % (0-10); NRBC Flagged by Analyzer 0 % (0-5); Neutrophil # 4.18 X10^3/uL (2.7-7.7); Platelet Count 249 K/mm3 (150-450); RBC Distribution Width CV 13.5 % (11.6-14.6); RBC Distribution Width SD 42.3 fl (35.1-43.9); Red Blood Count 5.49 M/mm3 (4.6-6.2); White Blood Count 7.5 K/mm3 (4.4-11.0)
[2021-02-24 10:11] LABS: ALB/GLOB Ratio 0.8 RATIO (0.9-2.4); AST(SGOT) 17 U/L (15-37); Alanine Aminotransfer ALT/SGPT 25 U/L (16-61); Albumin, Serum 3.5 g/dL (3.2-5.0); Alkaline Phosphatase 106 U/L (45-117); Anion Gap 6 (5-15); BUN 14 mg/dL (7-18); Chloride 104 mmol/L (98-107); Creatinine, Serum 0.88 mg/dL (0.70-1.30); EST Glomerular Filtration Rate 89 mL/min (>60); Est Glom Filt Rate - Afr Amer 108 mL/min (>60); Estimated Creatinine Clearance 78.69 ml/min; Globulin 4.3 g/dL (2.2-4.2); Glucose 186 mg/dL (74-106); Potassium 3.5 mmol/L (3.5-5.1); Protein, Total 7.8 g/dL (6.4-8.2); Sodium Level 139 mmol/L (136-145)
[2021-02-24 10:47] VITALS: BP 122/88; BP 133/94; BP 146/84; PULSE 67; PULSE 68; PULSE 80
[2021-02-24 11:26] VITALS: BP 133/83; PULSE 64; RESP 20; O2SAT 94
[2021-02-24] MEDS: 0.9% Normal Saline 1,000 ML 999 ML IV (11:29)
--- NOTE | 2021-02-24 13:08 | ED.RN ---
pt ambulated with this rn. pt states no complaints. dr hodges notified at this time.
[2021-02-24 13:33] VITALS: BP 152/93; PULSE 67; RESP 14; O2SAT 94
== END 2021-02-24 13:34 | disposition home or self-care (01) ==
PROVIDERS: Emergency Provider Emergency Medicine; PCP Nurse Practitioner
DX: R42 Dizziness and giddiness (principal); I25.10 Atherosclerotic heart disease of native coronary artery without angina pectoris; J44.9 Chronic obstructive pulmonary disease, unspecified; M35.00 Sjogren syndrome, unspecified; I35.1 Nonrheumatic aortic (valve) insufficiency; E11.65 Type 2 diabetes mellitus with hyperglycemia; I10 Essential (primary) hypertension; E78.5 Hyperlipidemia, unspecified; E03.9 Hypothyroidism, unspecified; K21.9 Gastro-esophageal reflux disease without esophagitis; Z79.02 Long term (current) use of antithrombotics/antiplatelets; Z79.899 Other long term (current) drug therapy; Z86.73 Personal history of transient ischemic attack (TIA), and cerebral infarction without residual deficits
CPT/HCPCS: 80053; 84484; 85025; 93005; 96360; 99285; J7030

== ENCOUNTER → 2021-04-29 15:29 | Outpatient (CLI) | payer MEDICARE, OTHER, SELFPAY ==
[2021-04-29 16:38] LABS: EXAGEN MAILED SPECIMEN
[2021-04-29 17:55] LABS: Color, Urine Yellow (Yellow); Glucose, Dipstick 50 mg/dl (Normal); Ketone-Dipstick Negative (Negative); Leukocyte Esterase-Dipstick Negative /ul (Negative); Nitrite-Dipstick Negative (Negative); Occult Blood-Urine Negative /ul (Negative); Protein-Dipstick Negative (Negative); Specific Gravity, Urine 1.015 (1.002-1.030); Urine Bilirubin Dipstick Negative (Negative); Urine Clarity Clear (Clear); Urine Urobilinogen Normal (Normal)
[2021-04-29 18:34] LABS: Protein, Urine (Random) < 6.0 mg/dL (<11.9)
== END ==
PROVIDERS: PCP Nurse Practitioner; Referring Provider Internal Medicine Rheumatology; Visit Provider Internal Medicine Rheumatology
DX: M35.00 Sjogren syndrome, unspecified (principal); R76.8 Other specified abnormal immunological findings in serum; M47.897 Other spondylosis, lumbosacral region; M17.0 Bilateral primary osteoarthritis of knee; M70.62 Trochanteric bursitis, left hip; M16.0 Bilateral primary osteoarthritis of hip
CPT/HCPCS: 81002; 82570; 84156

== ENCOUNTER → 2021-05-06 10:46 | Outpatient (CLI) | payer MEDICARE, OTHER, SELFPAY ==
--- NOTE | 2021-05-06 10:47 | ECHOD_ITS ---
Reason For Study: Murmur Procedure This was a 2D Doppler, Color Flow transthoracic echocardiogram. The exam was of adequate technical quality. Exam performed in department. Left Ventricle Normal LV size. Left ventricular systolic function is normal. The estimated ejection fraction is 55 %. No evidence for diastolic dysfunction. No regional wall motion abnormalities noted. Right Ventricle Normal RV size. Normal systolic function. Atria Normal left atrium. Normal right atrium. No doppler evidence for ASD. Mitral Valve There is no mitral annular calcification. Normal mitral valve. Mild (1+) mitral valve insufficiency. Tricuspid Valve Normal tricuspid valve. Trivial tricuspid valve insufficiency. Right ventricular systolic pressure estimated to be 28 mmHg. Aortic Valve Trisinus/trileaflet aortic valve. Mild diffuse aortic valve thickening. Mild diffuse aortic valve calcification. Aortic valve sclerosis / mild aortic valve stenosis. Trivial aortic valve insufficiency. Pulmonic Valve The pulmonic valve is not well visualized. Trivial pulmonic valve insufficiency. Great Vessels Normal sized aortic root. Pericardium/Pleural No pericardial effusion. MMode/2D Measurements & Calculations LVIDd: 4.9 cm IVSd: 0.86 cm LVOT diam: 2.5 cm LVIDs: 3.3 cm LVPWd: 1.00 cm LVOT area: 4.9 cm2 FS: 32.2 % Ao root diam: 3.4 cm LAV(MOD-bp): 46.6 ml LA A4 area: 15.9 cm2 LA dimension: 3.5 cm LAV(MOD-bp) Indexed: 20.2 ml/m2 LAV(MOD-sp2): 52.5 ml LAV(MOD-sp4): 35.5 ml RA A4 area: 15.9 cm2 Time Measurements MV dec time: 0.39 sec Doppler Measurements & Calculations MV E max christiano: 51.5 cm/sec Lat Peak E' Christiano: 5.9 cm/sec Med Peak E' Christiano: 8.6 cm/sec MV A max christiano: 100.1 cm/sec E/E' lat: 8.8 E/E' med: 6.0 MV E/A: 0.51 MV V2 max: 104.1 cm/sec MV P1/2t max christiano: 58.8 cm/sec Ao V2 max: 216.5 cm/sec MV max P.3 mmHg MV P1/2t: 115.0 msec Ao max P.8 mmHg MV V2 mean: 50.3 cm/sec MV dec slope: 149.8 cm/sec2 Ao V2 mean: 141.0 cm/sec MV mean P.2 mmHg Ao mean P.2 mmHg MV V2 VTI: 23.2 cm MVA(P1/2t): 1.9 cm2 Ao V2 VTI: 45.6 cm MVA(VTI): 5.1 cm2 EDUARDA(I,D): 2.6 cm2 EDUARDA(V,D): 2.2 cm2 AI max christiano: 359.8 cm/sec LV V1 max: 96.6 cm/sec SV(LVOT): 118.3 ml AI max P.9 mmHg LV V1 max P.7 mmHg LV V1 mean P.1 mmHg AI dec slope: 174.0 cm/sec2 LV V1 mean: 67.1 cm/sec AI P1/2t: 605.7 msec LV V1 VTI: 24.1 cm PA V2 max: 107.9 cm/sec TR max christiano: 248.1 cm/sec TR max P.7 mmHg ECHO/Echo Complete Interpretation Summary Left ventricular systolic function is normal. The estimated ejection fraction is 55 %. Mild (1+) mitral valve insufficiency. Trivial tricuspid valve insufficiency. Aortic valve sclerosis / mild aortic valve stenosis. Trivial aortic valve insufficiency. Trivial pulmonic valve insufficiency. Right ventricular systolic pressure estimated to be 28 mmHg. No evidence for diastolic dysfunction. Ordering Physician: Vinayak Elise Referring Physician: Shantelle Rueda Performed By: Elvin Ordonez RCS
== END ==
PROVIDERS: PCP Nurse Practitioner; Referring Provider Internal Medicine Cardiovascular Disease; Visit Provider Internal Medicine Cardiovascular Disease
DX: I25.10 Atherosclerotic heart disease of native coronary artery without angina pectoris (principal); I38 Endocarditis, valve unspecified; E78.5 Hyperlipidemia, unspecified; I10 Essential (primary) hypertension
CPT/HCPCS: 93306

== ENCOUNTER → 2021-05-20 09:41 | Outpatient (CLI) | payer MEDICARE, OTHER, SELFPAY ==
[2021-05-19 14:02] VITALS: BMI 27.5
[2021-05-21 09:54] LABS: PSA,Total- Diagnostic 5.77 ng/mL (0.0-4.0)
== END ==
PROVIDERS: PCP Nurse Practitioner; Referring Provider Nurse Practitioner Adult Health; Visit Provider Nurse Practitioner Adult Health
DX: R97.20 Elevated prostate specific antigen [PSA] (principal)
CPT/HCPCS: 36415; 84153; G0103

== ENCOUNTER 2021-11-17 10:06 | Outpatient (CLI) | payer MEDICARE, OTHER, SELFPAY ==
[2021-11-17 12:17] LABS: Erythrocyte Sedimentation Rate 46 mm/hr (0-20)
[2021-11-17 12:18] LABS: Absolute Lymphocyte Count 2.89 X10^3/uL (0.83-4.51); Absolute Neutrophil Count 2.7 X10^3/uL (2.0-7.7); Basophil# 0.03 X10^3/uL; Basophil% 0.5 % (0-1); Eosinophils% 1.5 % (0-5); Hematocrit 47.9 % (40-54); Hemoglobin 16.1 g/dL (13.0-16.5); Lymphocyte # 2.89 X10^3/ul (0.83-4.51); Lymphocyte % 44.6 % (19-41); Mean Corp Hgb Conc 33.6 g/dL (32-36); Mean Corpuscular Hgb 28.3 pg (27.0-32.0); Mean Corpuscular Volume 84.2 fL (80-94); Mean Platelet Vol. 9.6 fl (6.2-12.0); Monocyte# 0.71 X10^3/uL; NRBC Flagged by Analyzer 0 % (0-5); Neutrophil # 2.73 X10^3/uL (2.7-7.7); Neutrophil % 42.1 % (47-70); Platelet Count 264 K/mm3 (150-450); RBC Distribution Width CV 13.4 % (11.6-14.6); RBC Distribution Width SD 41.6 fl (35.1-43.9); Red Blood Count 5.69 M/mm3 (4.6-6.2); White Blood Count 6.5 K/mm3 (4.4-11.0)
[2021-11-17 12:30] LABS: ALB/GLOB Ratio 0.8 RATIO (0.9-2.4); AST(SGOT) 17 U/L (15-37); Alanine Aminotransfer ALT/SGPT 29 U/L (16-61); Albumin, Serum 3.7 g/dL (3.2-5.0); Alkaline Phosphatase 103 U/L (45-117); Anion Gap 8 (5-15); BUN 13 mg/dL (7-18); BUN/Creat Ratio 14.1 RATIO (10-20); CRP 3.47 mg/L (0.0-3.0); Calcium,Total 9.4 mg/dL (8.5-10.1); Chloride 105 mmol/L (98-107); Creatinine, Serum 0.92 mg/dL (0.70-1.30); EST Glomerular Filtration Rate 84 mL/min (>60); Est Glom Filt Rate - Afr Amer 101 mL/min (>60); Globulin 4.7 g/dL (2.2-4.2); Glucose 91 mg/dL (74-106); Potassium 3.7 mmol/L (3.5-5.1); Protein, Total 8.4 g/dL (6.4-8.2); Sodium Level 138 mmol/L (136-145)
== END 2021-11-17 23:59 | disposition home or self-care (01) ==
LOC: MTLAB 10:08
PROVIDERS: PCP Nurse Practitioner; Referring Provider Internal Medicine Rheumatology; Visit Provider Internal Medicine Rheumatology
DX: M35.00 Sjogren syndrome, unspecified (principal); E11.9 Type 2 diabetes mellitus without complications; R76.8 Other specified abnormal immunological findings in serum; M47.897 Other spondylosis, lumbosacral region; M17.0 Bilateral primary osteoarthritis of knee; M70.62 Trochanteric bursitis, left hip; M16.0 Bilateral primary osteoarthritis of hip; R00.2 Palpitations; E03.9 Hypothyroidism, unspecified; E78.5 Hyperlipidemia, unspecified
CPT/HCPCS: 36415; 80053; 85025; 85652; 86140

== ENCOUNTER 2021-12-11 08:03 | Outpatient (CLI) | payer MEDICARE, OTHER, SELFPAY ==
[2021-12-11 10:47] LABS: ALB/GLOB Ratio 0.8 RATIO (0.9-2.4); AST(SGOT) 16 U/L (15-37); Alanine Aminotransfer ALT/SGPT 26 U/L (16-61); Albumin, Serum 3.8 g/dL (3.2-5.0); Alkaline Phosphatase 101 U/L (45-117); Anion Gap 4 (5-15); BUN 18 mg/dL (7-18); BUN/Creat Ratio 17.8 RATIO (10-20); Calcium,Total 8.9 mg/dL (8.5-10.1); Chloride 105 mmol/L (98-107); Cholesterol 172 mg/dL (200); Creatinine, Serum 1.01 mg/dL (0.70-1.30); EST Glomerular Filtration Rate 75 mL/min (>60); Est Glom Filt Rate - Afr Amer 91 mL/min (>60); Globulin 4.6 g/dL (2.2-4.2); Glucose 121 mg/dL (74-106); High Density Lipoprotein 46 mg/dL; Potassium 4.2 mmol/L (3.5-5.1); Protein, Total 8.4 g/dL (6.4-8.2); Sodium Level 138 mmol/L (136-145); Triglycerides 180 mg/dL; Very Low Density Lipoprotein 36 mg/dL (5-40)
== END 2021-12-11 23:59 | disposition home or self-care (01) ==
LOC: MTLAB 08:05
PROVIDERS: PCP Nurse Practitioner; Referring Provider Nurse Practitioner; Visit Provider Nurse Practitioner
DX: E11.42 Type 2 diabetes mellitus with diabetic polyneuropathy (principal)
CPT/HCPCS: 36415; 80053; 80061

== ENCOUNTER → 2022-07-27 | Outpatient (CLI) | payer MEDICARE, OTHER, SELFPAY ==
[2022-07-27 10:46] LABS: PSA,Total- Diagnostic 7.52 ng/mL (0.0-4.0)
== END | disposition home or self-care (01) ==
PROVIDERS: PCP Nurse Practitioner Family; Referring Provider Nurse Practitioner Family; Visit Provider Nurse Practitioner Family
DX: R97.20 Elevated prostate specific antigen [PSA] (principal)
CPT/HCPCS: 36415; 84153

== ENCOUNTER → 2022-10-30 | Outpatient (CLI) | payer MEDICARE, OTHER, SELFPAY ==
--- NOTE | 2022-10-30 10:52 | ART_ITS ---
Reason For Study: PAD Procedure A bilateral lower extremity continuous wave Doppler with analog waveform analysis,segmental pressures,and ankle brachial indexes without exercise. Left Segmental Pressures Left brachial= 139mmHg. Left posterior tibial artery = 159mmHg. Left dorsalis pedis artery = 163mmHg. Left digit = 124 mmHg. The left dorsalis pedis waveforms are triphasic. The left posterior tibial artery waveforms are triphasic. Right Segmental Pressures Right brachial= 128mmHg. Right posterior tibial artery = 171mmHg. Right dorsalis pedis artery = 152mmHg. Right digit = 107 mmHg. The right dorsalis pedis waveforms are triphasic. The right posterior tibial artery waveforms are triphasic. Indices The right ankle brachial index by the dorsalis pedis is 1.09. The right ankle brachial index by the posterior tibial artery is 1.23. The right digital-brachial index is 0.77. The left ankle brachial index by the dorsalis pedis is 1.17. The left ankle brachial index by the posterior tibial artery is 1.14. The left digital-brachial index is 0.89. VL/Lower Ext Art Exam w/o Exercis Interpretation Summary Triphasic Doppler waveforms are noted at ankle level bilaterally. Pulse-volume recordings appear satisfactory at all levels bilaterally. Resting ankle-brachial indices are norm al bilaterally. Digital-brachial indices are normal bilaterally. There is no evidence of significant arterial occlusive disease in the lower ext remities bilaterally. Ordering Physician: Reynaldo Mendoza Referring Physician: Allyssa Vivas Performed By: Catrina Jackson RVT
== END | disposition home or self-care (01) ==
LOC: CVS 10:51
PROVIDERS: PCP Nurse Practitioner Family; Visit Provider Surgery
DX: I73.9 Peripheral vascular disease, unspecified (principal)
CPT/HCPCS: 93923

== ENCOUNTER → 2022-11-25 | Outpatient (CLI) | payer MEDICARE, OTHER, SELFPAY ==
[2022-11-25 10:47] LABS: Absolute Lymphocyte Count 3.37 X10^3/uL (0.83-4.51); Absolute Neutrophil Count 2.8 X10^3/uL (2.0-7.7); Basophil# 0.03 X10^3/uL; Basophil% 0.4 % (0-1); Eosinophil# 0.11 X10^3/uL; Eosinophils% 1.6 % (0-5); Hematocrit 47.6 % (40-54); Hemoglobin 15.5 g/dL (13.0-16.5); Lymphocyte # 3.37 X10^3/ul (0.83-4.51); Lymphocyte % 48.3 % (19-41); Mean Corp Hgb Conc 32.6 g/dL (32-36); Mean Corpuscular Hgb 28.1 pg (27.0-32.0); Mean Corpuscular Volume 86.4 fL (80-94); Mean Platelet Vol. 9.2 fl (6.2-12.0); Monocyte# 0.64 X10^3/uL; Monocyte% 9.2 % (0-10); NRBC Flagged by Analyzer 0 % (0-5); Neutrophil # 2.82 X10^3/uL (2.7-7.7); Neutrophil % 40.4 % (47-70); Platelet Count 265 K/mm3 (150-450); RBC Distribution Width CV 13.6 % (11.6-14.6); RBC Distribution Width SD 43.3 fl (35.1-43.9); Red Blood Count 5.51 M/mm3 (4.6-6.2)
[2022-11-25 11:20] LABS: ALB/GLOB Ratio 0.8 RATIO (0.9-2.4); AST(SGOT) 17 U/L (15-37); Alanine Aminotransfer ALT/SGPT 25 U/L (16-61); Albumin, Serum 3.6 g/dL (3.2-5.0); Alkaline Phosphatase 96 U/L (45-117); Anion Gap 7 (5-15); BUN 13 mg/dL (7-18); BUN/Creat Ratio 14.5 RATIO (10-20); Calcium,Total 8.9 mg/dL (8.5-10.1); Chloride 105 mmol/L (98-107); Cholesterol 194 mg/dL (200); Creatinine, Serum 0.89 mg/dL (0.70-1.30); EST Glomerular Filtration Rate 86 mL/min (>60); Est Glom Filt Rate - Afr Amer 104 mL/min (>60); Globulin 4.5 g/dL (2.2-4.2); Glucose 119 mg/dL (74-106); High Density Lipoprotein 45 mg/dL; Protein, Total 8.1 g/dL (6.4-8.2); Sodium Level 139 mmol/L (136-145); Thyroid Stim Hormone (TSH) 2.05 uIU/mL (0.358-3.74); Triglycerides 194 mg/dL; Very Low Density Lipoprotein 39 mg/dL (5-40)
[2022-11-25 11:29] LABS: Microalbumin,Random Urine 7.6 mg/L (NO RANGE EST.); Microalbumin:Creatinine Ratio 7.4 mg/g CRE (<30 mg/g CRE)
== END | disposition home or self-care (01) ==
PROVIDERS: PCP Nurse Practitioner Family; Referring Provider Nurse Practitioner Family; Visit Provider Nurse Practitioner Family
DX: E78.1 Pure hyperglyceridemia (principal); E11.42 Type 2 diabetes mellitus with diabetic polyneuropathy; I10 Essential (primary) hypertension; E03.9 Hypothyroidism, unspecified
CPT/HCPCS: 36415; 80053; 80061; 82043; 82570; 84443; 85025

== ENCOUNTER → 2023-01-11 | Outpatient (CLI) | payer MEDICARE, OTHER, SELFPAY ==
[2023-01-11 12:15] LABS: Vitamin B12 1150 pg/mL (211-911)
[2023-01-11 12:54] LABS: Hemoglobin A1c 6.4 % (3.8-5.6)
[2023-01-13 05:07] LABS: Free Lambda Light Chains 21.7 mg/L (5.7-26.3)
[2023-01-13 09:49] LABS: Vitamin B1, Thiamine 130.8 nmol/L (66.5-200.0)
== END | disposition home or self-care (01) ==
LOC: MTLAB 10:38
PROVIDERS: PCP Nurse Practitioner Family; Referring Provider Psychiatry & Neurology Neurology; Visit Provider Psychiatry & Neurology Neurology
DX: G62.9 Polyneuropathy, unspecified (principal); R73.9 Hyperglycemia, unspecified
CPT/HCPCS: 36415; 82607; 82746; 83036; 83883; 84425

== ENCOUNTER → 2023-05-25 | Outpatient (CLI) | payer MEDICARE, OTHER, SELFPAY ==
[2023-05-28 15:09] LABS: Albumin 3.7 g/dL (2.9-4.4); Alpha-1-Globulins 0.2 g/dL (0.0-0.4); Alpha-2-Globulins 0.9 g/dL (0.4-1.0); Gamma Globulin 1.5 g/dL (0.4-1.8); Immunoglobulin A 321 mg/dL (61-437); Immunoglobulin G 1486 mg/dL (603-1613); Immunoglobulin M 97 mg/dL (15-143); PROEL- TOTAL PROTEIN 7.4 g/dL (6.0-8.5)
== END | disposition home or self-care (01) ==
LOC: MTLAB 16:02
PROVIDERS: PCP Nurse Practitioner Family; Referring Provider Psychiatry & Neurology Neurology; Visit Provider Psychiatry & Neurology Neurology
DX: G62.9 Polyneuropathy, unspecified (principal)
CPT/HCPCS: 36415; 82784; 84165; 86334; 86335

== ENCOUNTER → 2023-05-31 | Outpatient (CLI) | payer MEDICARE, OTHER, SELFPAY ==
[2023-05-31 10:46] LABS: ALB/GLOB Ratio 0.8 RATIO (0.9-2.4); AST(SGOT) 17 U/L (15-37); Alanine Aminotransfer ALT/SGPT 27 U/L (16-61); Albumin, Serum 3.7 g/dL (3.2-5.0); Alkaline Phosphatase 103 U/L (45-117); Anion Gap 6 (5-15); BUN 13 mg/dL (7-18); BUN/Creat Ratio 14.3 RATIO (10-20); Calcium,Total 9.4 mg/dL (8.5-10.1); Chloride 105 mmol/L (98-107); Cholesterol 202 mg/dL (200); Creatinine, Serum 0.91 mg/dL (0.70-1.30); EST Glomerular Filtration Rate 84 mL/min (>60); Est Glom Filt Rate - Afr Amer 102 mL/min (>60); Globulin 4.6 g/dL (2.2-4.2); Glucose 127 mg/dL (74-106); High Density Lipoprotein 44 mg/dL; Potassium 3.9 mmol/L (3.5-5.1); Protein, Total 8.3 g/dL (6.4-8.2); Sodium Level 139 mmol/L (136-145); Triglycerides 256 mg/dL; Very Low Density Lipoprotein 51 mg/dL (5-40)
[2023-05-31 14:49] LABS: Microalbumin,Random Urine 11.7 mg/L (NO RANGE EST.); Microalbumin:Creatinine Ratio 10.4 mg/g CRE (<30 mg/g CRE)
== END | disposition home or self-care (01) ==
LOC: MTLAB 08:28
PROVIDERS: PCP Nurse Practitioner Family; Referring Provider Nurse Practitioner Family; Visit Provider Nurse Practitioner Family
DX: E78.00 Pure hypercholesterolemia, unspecified (principal); E11.42 Type 2 diabetes mellitus with diabetic polyneuropathy
CPT/HCPCS: 36415; 80053; 80061; 82043; 82570

== ENCOUNTER → 2023-06-15 | Outpatient (CLI) | payer MEDICARE, OTHER, SELFPAY ==
[2023-06-15 13:10] LABS: PSA,Total- Diagnostic 5.26 ng/mL (0.0-4.0)
== END | disposition home or self-care (01) ==
LOC: MTLAB 10:54
PROVIDERS: PCP Nurse Practitioner Family; Referring Provider Urology; Visit Provider Urology
DX: N40.1 Benign prostatic hyperplasia with lower urinary tract symptoms (principal)
CPT/HCPCS: 36415; 84153

== ENCOUNTER → 2023-07-06 | Outpatient (CLI) | payer MEDICARE, OTHER, SELFPAY ==
--- NOTE | 2023-07-06 12:03 | NEURO ---
NCS and/or EMG Patient Report Ordering Doctor: Rajan Fong DATE OF SERVICE: 07/06/23 Clinical Summary: This is an 82 year old male presenting with complaints of numbness, tingling, and pain in the feet. This EMG/NCS was performed to evaluate for peripheral polyneuropathy. Nerve Conduction Studies Summary: All SNAP's were absent bilaterally. The peroneal-EDB CMAP amplitudes were reduced diffusely. The left tibial-AH CMAP amplitude was reduced. The peroneal motor conduction velocity was reduced diffusely bilaterally. Needle Examination Summary: There was a higher proportion of motor unit action potentials with reduced recruitment, increased amplitude, increased duration, and polyphasia in the tensor fascia beck bilaterally, tibialis anterior bilaterally, peroneus longus bilaterally, and medial gastrocnemius muscles bilaterally. Impression: There is electrodiagnostic evidence of the following - 1) Predominantly axonal, sensorimotor, peripheral polyneuropathy 2) Chronic, bilateral L5 radiculopathies Multi Select Codes Neurology Neurology Interp Codes: 55356-66 Musc test done w/n test comp (interp) (2) and 52860-30 Nrv cndj test 7-8 studies (interp)
== END | disposition home or self-care (01) ==
LOC: PSN 10:10
PROVIDERS: PCP Nurse Practitioner Family; Referring Provider Psychiatry & Neurology Neurology; Visit Provider Psychiatry & Neurology Neurology
DX: R20.0 Anesthesia of skin (principal); G62.9 Polyneuropathy, unspecified; M79.671 Pain in right foot; M79.672 Pain in left foot
CPT/HCPCS: 95886; 95910

== ENCOUNTER → 2023-08-06 | Outpatient (CLI) | payer MEDICARE, OTHER, SELFPAY ==
--- NOTE | 2023-08-06 14:51 | ECHOD_ITS ---
Reason For Study: MURMUR Procedure This was a 2D Doppler, Color Flow transthoracic echocardiogram. Exam performed in department. Left Ventricle Normal LV size. Mild concentric left ventricular hypertrophy. The left ventricular ejection fraction is 55 %. Stage 1 diastolic dysfunction. Right Ventricle Normal right ventricle. Atria The left and right atria are normal. Mitral Valve Trivial mitral valve insufficiency. Tricuspid Valve Mild tricuspid valve insufficiency. Normal pulmonary artery pressure. Aortic Valve The aortic valve is not well visualized in the short axis view. Mild diffuse aortic valve calcification. Mild aortic stenosis. Trivial aortic valve insufficiency. Pulmonic Valve The pulmonic valve is not well visualized. Great Vessels Normal sized aortic root. Pericardium/Pleural No pericardial effusion. MMode/2D Measurements & Calculations LVIDd: 4.8 cm IVSd: 1.3 cm LVOT diam: 2.6 cm LVIDs: 3.8 cm LVPWd: 0.89 cm LVOT area: 5.2 cm2 RVDd: 3.8 cm FS: 21.3 % Ao root diam: 3.6 cm LAV(MOD-bp): 64.6 ml LVAd ap4: 34.7 cm2 LAV(MOD-bp) Indexed: 27.9 ml/m2 LVLd ap4: 8.9 cm LAV(MOD-sp2): 67.3 ml EDV(MOD-sp4): 115.2 ml LAV(MOD-sp4): 61.2 ml EDV(sp4-el): 115.1 ml LVAs ap4: 22.7 cm2 LVLs ap4: 7.9 cm ESV(MOD-sp4): 57.9 ml ESV(sp4-el): 55.5 ml EF(MOD-sp4): 49.8 % EF(sp4-el): 51.8 % LVAd ap2: 27.8 cm2 SV(MOD-sp4): 57.4 ml SV(MOD-sp2): 42.2 ml LVLd ap2: 8.5 cm EDV(MOD-sp2): 79.1 ml EDV(sp2-el): 77.3 ml LVAs ap2: 17.5 cm2 LVLs ap2: 7.4 cm ESV(MOD-sp2): 37.0 ml ESV(sp2-el): 35.0 ml EF(MOD-sp2): 53.3 % SV(sp4-el): 59.6 ml LA dimension(2D): 4.4 cm LA A4 area: 20.9 cm2 RA A4 area: 20.0 cm2 TAPSE: 2.1 cm Time Measurements MV dec time: 0.31 sec Doppler Measurements & Calculations MV E max christiano: 56.1 cm/sec Lat Peak E' Christiano: 8.6 cm/sec Med Peak E' Christiano: 8.3 cm/sec MV A max christiano: 115.9 cm/sec E/E' lat: 6.5 E/E' med: 6.8 MV E/A: 0.48 Ao V2 max: 263.3 cm/sec LV V1 max: 97.7 cm/sec MR max christiano: 245.5 cm/sec Ao max P.8 mmHg LV V1 max P.8 mmHg MR max P.1 mmHg Ao V2 mean: 202.4 cm/sec LV V1 mean P.5 mmHg MR mean christiano: 0.00 cm/sec Ao mean P.0 mmHg LV V1 mean: 76.1 cm/sec MR mean P.00 mmHg Ao V2 VTI: 55.4 cm LV V1 VTI: 22.6 cm MR VTI: 0.00 cm AV (velocity ratio): 0.41 EDUARDA(I,D): 2.1 cm2 EDUARDA(V,D): 1.9 cm2 SV(LVOT): 117.6 ml PA V2 max: 111.4 cm/sec TR max christiano: 260.8 cm/sec TR max P.2 mmHg ECHO/Echo Complete Interpretation Summary Mild concentric left ventricular hypertrophy. The left ventricular ejection fraction is 55 %. Stage 1 diastolic dysfunction. Mild tricuspid valve insufficiency. Mild diffuse aortic valve calcification. Mild aortic stenosis. Ordering Physician: Keesha Moore Referring Physician: Allyssa Vivas Performed By: Silvia Florez RDCS, RVT
== END | disposition home or self-care (01) ==
LOC: CVS 14:48
PROVIDERS: PCP Nurse Practitioner Family; Referring Provider Physician Assistant Medical; Visit Provider Physician Assistant Medical
DX: I25.10 Atherosclerotic heart disease of native coronary artery without angina pectoris (principal)
CPT/HCPCS: 93306

== ENCOUNTER → 2023-08-17 | Outpatient (CLI) | payer MEDICARE, OTHER, SELFPAY ==
[2023-08-17 18:06] LABS: Thyroid Stim Hormone (TSH) 2.04 uIU/mL (0.358-3.74)
== END | disposition home or self-care (01) ==
LOC: MTLAB 15:06
PROVIDERS: PCP Nurse Practitioner Family; Referring Provider Nurse Practitioner Family; Visit Provider Nurse Practitioner Family
DX: E03.9 Hypothyroidism, unspecified (principal)
CPT/HCPCS: 36415; 84443

== ENCOUNTER → 2023-11-24 | Outpatient (CLI) | payer MEDICARE, OTHER, SELFPAY ==
[2023-11-24 10:07] LABS: Absolute Lymphocyte Count 4.85 X10^3/uL (0.83-4.51); Absolute Neutrophil Count 4.9 X10^3/uL (2.0-7.7); Basophil# 0.06 X10^3/uL; Basophil% 0.6 % (0-1); Eosinophil# 0.07 X10^3/uL; Eosinophils% 0.6 % (0-5); Hematocrit 49.1 % (40-54); Hemoglobin 15.7 g/dL (13.0-16.5); Lymphocyte # 4.85 X10^3/ul (0.83-4.51); Lymphocyte % 44.9 % (19-41); Mean Corpuscular Hgb 27.4 pg (27.0-32.0); Mean Corpuscular Volume 85.5 fL (80-94); Mean Platelet Vol. 9.4 fl (6.2-12.0); Monocyte# 0.84 X10^3/uL; Monocyte% 7.8 % (0-10); NRBC Flagged by Analyzer 0 % (0-5); Neutrophil # 4.89 X10^3/uL (2.7-7.7); Neutrophil % 45.3 % (47-70); Platelet Count 320 K/mm3 (150-450); RBC Distribution Width CV 14.4 % (11.6-14.6); RBC Distribution Width SD 45.1 fl (35.1-43.9); Red Blood Count 5.74 M/mm3 (4.6-6.2); White Blood Count 10.8 K/mm3 (4.4-11.0)
[2023-11-24 10:34] LABS: Vitamin B12 408 pg/mL (211-911); Vitamin D,25 Hydroxy 42.7 ng/mL
[2023-11-24 10:37] LABS: ALB/GLOB Ratio 0.8 RATIO (0.9-2.4); AST(SGOT) 19 U/L (15-37); Alanine Aminotransfer ALT/SGPT 33 U/L (16-61); Albumin, Serum 3.7 g/dL (3.2-5.0); Alkaline Phosphatase 105 U/L (45-117); Anion Gap 7 (5-15); BUN 17 mg/dL (7-18); BUN/Creat Ratio 18.5 RATIO (10-20); Calcium,Total 9.2 mg/dL (8.5-10.1); Chloride 104 mmol/L (98-107); Cholesterol 165 mg/dL (200); Creatinine, Serum 0.92 mg/dL (0.70-1.30); EST Glomerular Filtration Rate 84 mL/min (>60); Est Glom Filt Rate - Afr Amer 101 mL/min (>60); Globulin 4.5 g/dL (2.2-4.2); Glucose 106 mg/dL (74-106); High Density Lipoprotein 56 mg/dL; Potassium 4.3 mmol/L (3.5-5.1); Protein, Total 8.2 g/dL (6.4-8.2); Sodium Level 140 mmol/L (136-145); Triglycerides 148 mg/dL; Very Low Density Lipoprotein 30 mg/dL (5-40)
== END | disposition home or self-care (01) ==
LOC: MTLAB 08:04
PROVIDERS: PCP Nurse Practitioner Family; Referring Provider Nurse Practitioner Family; Visit Provider Nurse Practitioner Family
DX: E78.00 Pure hypercholesterolemia, unspecified (principal); I10 Essential (primary) hypertension; E55.9 Vitamin D deficiency, unspecified
CPT/HCPCS: 36415; 80053; 80061; 82306; 82607; 82746; 85025

== ENCOUNTER → 2024-02-03 | Outpatient (CLI) | payer MEDICARE, OTHER, SELFPAY ==
[2024-02-03 18:15] LABS: PSA,Total- Diagnostic 6.38 ng/mL (0.0-4.0)
== END | disposition home or self-care (01) ==
LOC: MTLAB 14:17
PROVIDERS: PCP Nurse Practitioner Family; Referring Provider Urology; Visit Provider Urology
DX: R97.20 Elevated prostate specific antigen [PSA] (principal)
CPT/HCPCS: 36415; 84153

== ENCOUNTER 2024-03-12 21:09 | Inpatient (IN) | payer MEDICARE, OTHER, SELFPAY ==
[2024-03-12 21:09] VITALS: BP 135/81; PULSE 80; RESP 24; TEMP 36.6; O2SAT 95
--- NOTE | 2024-03-12 21:24 | EKG12_ITS ---
Test Reason : CP Blood Pressure : / mmHG Vent. Rate : 079 BPM Atrial Rate : 079 BPM P-R Int : 242 ms QRS Dur : 080 ms QT Int : 396 ms P-R-T Axes : 087 056 079 degrees QTc Int : 454 ms Sinus rhythm with 1st degree A-V block Nonspecific ST abnormality Abnormal ECG Confirmed by CRUZ JOHNSON, VANESSA ([id number]), film editor ZURI DÍAZ ([id number]) on 03/14/2024 2:04:02 PM Referred By: DEWAYNE Confirmed By:VANESSA ARROYO MD
--- NOTE | 2024-03-12 21:26 | EX.ED.DYSGE1 ---
HPI <JANICE Hurst - Last Filed: 03/12/24 21:51> History of Present Illness Chief Complaint: Chest Pain Narrative Narrative: Patient is an 83-year-old male with history of BPH, hypothyroidism, hyperlipidemia, CAD who follows up with Dr. Ramos for cardiology, patient had an echocardiogram in July 2023, ejection fraction 55%. Patient states that for the last 3 nights after dinner he has been having chest pain that is midsternal that last 30 minutes. Tonight, patient had a steak at approximately 5 PM. At 6 PM, patient developed the pain again, however was more severe and after 2 hours of not let up he called the ambulance. Patient is the primary care provider for his . Patient is under a lot of stress. Patient states that his pain is an 8 out of 10 at this time. Patient is he did have some diaphoresis. The pain started while he was just sitting in a chair. [facility] <JANICE Hurst - Last Filed: 03/12/24 21:51> [facility] Medical History Nonrheumatic aortic (valve) stenosis Valvular heart disease Essential hypertension Nonrheumatic aortic (valve) insufficiency Hyperlipidemia Atherosclerotic heart disease of [place] coronary artery without angina pectoris Fatigue GERD (gastroesophageal reflux disease) Sjogrens syndrome CVA (cerebral vascular accident) ischemic stroke Hypothyroidism BPH without obstruction/lower urinary tract symptoms Dizziness and giddiness Type II diabetes mellitus, uncontrolled Chronic obstructive pulmonary disease with acute exacerbation Home Medications ?Medication ?Instructions ?Recorded ?Last Taken ?Type clopidogrel 75 mg tablet 75 mg PO DAILY 08/27/15 Unknown History levothyroxine 88 mcg tablet 88 mcg PO DAILY 08/27/15 Unknown History cholecalciferol (vitamin D3) 50 50 mcg PO DAILY 05/15/20 Unknown History mcg (2,000 unit) tablet cevimeline 30 mg capsule 30 mg PO DAILY 05/19/21 Unknown History cyanocobalamin (vitamin B-12) 2,500 mcg PO MOWEFR 05/19/21 Unknown History 2,500 mcg tablet glucosamine sulfate 1,000 mg tablet 1,000 mg PO DAILY 05/19/21 Unknown History amlodipine 5 mg tablet 5 mg PO DAILY 05/25/22 Unknown History losartan 50 mg tablet 50 mg PO DAILY 05/25/22 Unknown History Allergy/AdvReac Type Severity Reaction Status Date / Time clindamycin Allergy Severe Swelling Verified 09/20/23 14:37 codeine Allergy Severe HALLUCINATI Verified 09/20/23 14:37 ONS acetaminophen (From Percocet) AdvReac Severe Vomiting,Na Verified 09/20/23 14:37 usea oxycodone (From Percocet) AdvReac Severe Vomiting,Na Verified 09/20/23 14:37 usea indomethacin AdvReac Vomiting Verified 09/20/23 14:37 Family History Father Myocardial infarction Mother CAD (coronary artery disease) Brother CHF (congestive heart failure) Sister CAD (coronary artery disease) Other Diabetes Heart disease Hypertension Thyroid disorder Surgical History History of knee surgery History of cataract surgery History of tonsillectomy Social History household members: spouse Smoking Status: Never smoker second hand exposure: No alcohol intake: former details: stopped drinking 1988 substance use type: does not use what type of physical activity do you participate in: bicycling and weight training frequency: 5-6 times per week madalyn/presybeterian: Rastafarian seatbelt use: always ROS <JANICE Hurst - Last Filed: 03/12/24 21:51> ROS ED ROS Narrative Constitutional: Negative for fever, chills, weight loss, weakness Eyes: Negative for vision loss, vision change, double vision ENT: Negative for any sore throat, ear pain, congestion Cardiovascular: Negative for any tightness, palpitations. Positive chest pain, epigastric pain Respiratory: Negative for any cough, sputum production, hemoptysis, dyspnea, dyspnea on exertion, orthopnea Gastrointestinal: Negative for any abdominal pain, nausea, vomiting, diarrhea, constipation, blood in stool, blood in vomit : Negative for any urinary frequency, dysuria, retention, blood in urine Muscle skeletal: Negative for any neck pain, back pain Neurological: Negative for any headache, syncope, dizziness Skin: Negative for any rashes, itching, abrasions, lacerations Psychiatric: Negative for any depression, anxiety, stress, suicidal ideation, homicidal ideation Hematologic: Negative for any excessive bruising, easy bleeding EXAM <JANICE Hurst - Last Filed: 03/12/24 21:51> Physical Exam Narrative Exam Narrative: Vital signs reviewed. HEET: Head normocephalic atraumatic, TMs clear bilaterally. Posterior pharynx is clear, moist mucous membranes. Nares clear bilaterally. Neck: Supple with no lymphadenopathy or tenderness. No signs of meningismus. Cardiac: Regular rate and rhythm no murmurs gallops or rubs, equal peripheral pulses bilaterally. Respiratory: Lungs clear to auscultation bilaterally. No chest tenderness. Abdomen: Soft, nontender, nondistended. No abdominal bruit or pulsatile masses. No hepatosplenomegaly Extremities: No peripheral edema, no signs of gross trauma or deformity. Active full range of motion of all extremities. Neuro: Cranial nerves II through XII intact, no focal neurological deficits. Skin: Clean dry and intact with no rash, purpura, petechiae, vesicles or pustules. Backs/flank: No CVA tenderness, no midline spinal tenderness, no deformity. Psych: Normal mood and affect. No SI, HI or acute psychosis. Const Vital Signs: 03/12/24 21:09 03/12/24 21:17 03/12/24 21:24 Temperature 98 F Temperature Source Oral Pulse Rate 80 Respiratory Rate 24 H Respiratory Effort Normal Non-Labored Blood Pressure 135/81 H Blood Pressure Mean 99 Pulse Ox 95 Oxygen Delivery Method Room Air Room Air 03/12/24 22:52 03/12/24 23:00 Temperature Temperature Source Pulse Rate 83 83 Respiratory Rate 17 20 H Respiratory Effort Blood Pressure 149/90 H Blood Pressure Mean 109 Pulse Ox 94 93 Oxygen Delivery Method Room Air <Dr. Zamzam Landeros MD - Last Filed: 03/13/24 00:06> Physical Exam Const Vital Signs: 03/12/24 21:09 03/12/24 21:17 03/12/24 21:24 Temperature 98 F Temperature Source Oral Pulse Rate 80 Respiratory Rate 24 H Respiratory Effort Normal Non-Labored Blood Pressure 135/81 H Blood Pressure Mean 99 Pulse Ox 95 Oxygen Delivery Method Room Air Room Air 03/12/24 22:52 03/12/24 23:00 Temperature Temperature Source Pulse Rate 83 83 Respiratory Rate 17 20 H Respiratory Effort Blood Pressure 149/90 H Blood Pressure Mean 109 Pulse Ox 94 93 Oxygen Delivery Method Room Air [facility] <Vinayak Pa JANICE - Last Filed: 03/12/24 21:51> [facility] Lab Data Labs: Laboratory Results - last 24 hr 03/12/24 03/12/24 21:16 23:15 WBC 12.5 H RBC 5.43 Hgb 15.3 Hct 47.5 MCV 87.5 MCH 28.2 MCHC 32.2 RDW Std Deviation 44.6 H RDW Coeff of Kam 13.9 Plt Count 244 MPV 9.2 Immature Gran % (Auto) 0.300 Neut % (Auto) 72.4 H Lymph % (Auto) 20.9 Sutter % (Auto) 5.6 Eos % (Auto) 0.6 Baso % (Auto) 0.2 Absolute Neuts (auto) 9.0 H Absolute Lymphs (auto) 2.61 Nucleated RBC % 0 Sodium 137 Potassium 4.2 Chloride 104 Carbon Dioxide 26.0 Anion Gap 7 BUN 23 H Creatinine 1.01 Est GFR (MDRD) Af Amer 90 Est GFR (MDRD) Non-Af 75 BUN/Creatinine Ratio 22.8 H Glucose 178 H Calcium 9.4 Total Bilirubin 0.30 AST 23 ALT 31 Alkaline Phosphatase 95 Troponin I High Sens 68 363 H* Total Protein 8.1 Albumin 3.7 Globulin 4.4 H Albumin/Globulin Ratio 0.8 L Lipase 30 Radiography Diagnostic Testing: Clinical Impression(s) from Imaging Studies Chest X-Ray 03/12/24 22:50 IMPRESSION: No significant interval change. No radiographic evidence of acute cardiopulmonary disease. Electronically Signed: Riley Tracy MD at 22:25 EDT , EKG Sinus rhythm first-degree AV block: Attestation: I personally reviewed and interpreted this EKG as follows: Comments: Sinus rhythm with first-degree block, rate of 79 bpm, WA interval 242 ms, QRS duration 80 ms, no acute ST elevation, no acute infarct noted. Treatment and Re-Evaluation :: Differential diagnosis includes however is not limited to: ACS, SD, GERD, transaminitis, choledocholithiasis, cholecystitis, gastritis Patient appears to be in no obvious respiratory distress vital signs are stable, patient appears nontoxic. Presenting to the emergency department for complaints of midsternal chest pain that has been ongoing for the last 3 days after eating, tonight it did not let up. Patient will be given aspirin 192 mg, patient will receive a GI cocktail to see if this does decrease any of his pain. Patient will receive a cardiac workup including 2 separate troponins. Laboratory evaluation including CBC CMP and lipase. Patient will be reevaluated. Chest x-ray will be ordered. All radiologic examinations were read, reviewed by the emergency department attending. From these reads, a plan of care will be put in place. <Dr. Zamzam Landeros MD - Last Filed: 03/13/24 00:06> [facility] Lab Data Labs: Laboratory Results - last 24 hr 03/12/24 03/12/24 21:16 23:15 WBC 12.5 H RBC 5.43 Hgb 15.3 Hct 47.5 MCV 87.5 MCH 28.2 MCHC 32.2 RDW Std Deviation 44.6 H RDW Coeff of Kam 13.9 Plt Count 244 MPV 9.2 Immature Gran % (Auto) 0.300 Neut % (Auto) 72.4 H Lymph % (Auto) 20.9 Sutter % (Auto) 5.6 Eos % (Auto) 0.6 Baso % (Auto) 0.2 Absolute Neuts (auto) 9.0 H Absolute Lymphs (auto) 2.61 Nucleated RBC % 0 Sodium 137 Potassium 4.2 Chloride 104 Carbon Dioxide 26.0 Anion Gap 7 BUN 23 H Creatinine 1.01 Est GFR (MDRD) Af Amer 90 Est GFR (MDRD) Non-Af 75 BUN/Creatinine Ratio 22.8 H Glucose 178 H Calcium 9.4 Total Bilirubin 0.30 AST 23 ALT 31 Alkaline Phosphatase 95 Troponin I High Sens 68 363 H* Total Protein 8.1 Albumin 3.7 Globulin 4.4 H Albumin/Globulin Ratio 0.8 L Lipase 30 Radiography Diagnostic Testing: Clinical Impression(s) from Imaging Studies Chest X-Ray 03/12/24 22:50 IMPRESSION: No significant interval change. No radiographic evidence of acute cardiopulmonary disease. Electronically Signed: Riley Tracy MD at 22:25 EDT , Treatment and Re-Evaluation :: Differential diagnosis includes however is not limited to: ACS, SD, GERD, transaminitis, choledocholithiasis, cholecystitis, gastritis Patient appears to be in no obvious respiratory distress vital signs are stable, patient appears nontoxic. Presenting to the emergency department for complaints of midsternal chest pain that has been ongoing for the last 3 days after eating, tonight it did not let up. Patient will be given aspirin 192 mg, patient will receive a GI cocktail to see if this does decrease any of his pain. Patient will receive a cardiac workup including 2 separate troponins. Laboratory evaluation including CBC CMP and lipase. Patient will be reevaluated. Chest x-ray will be ordered. All radiologic examinations were read, reviewed by the emergency department attending. From these reads, a plan of care will be put in place. Patient seen and evaluated with PEPITO. I personally interviewed and examined the patient. I was involved in all aspects of patient's orders, interpretation of results, and treatment. Patient presents via EMS secondary to chest pain. He states for the last 3 evenings after he eats dinner he will get central chest pain. He states the first 2 nights it seemed to get better on its own. Tonight it was more persistent. He tried some Tums with no significant improvement. He denies shortness of breath. He does report a history of coronary artery disease but has never had an SD and does not have any cardiac stents. Patient sitting upright in bed no acute distress. Nontoxic-appearing. Head and neck examination unremarkable. Heart is regular rate and rhythm. Lung sounds are clear. Abdomen is soft with no focal tenderness. Active bowel sounds are noted throughout. Prehospital EKG was reviewed and reveals no evidence of ischemia. EKG is currently sinus rhythm at 79 bpm with a first-degree AV block. No acute ischemia. Patient did receive aspirin along with a GI cocktail. CBC reveals a white count of 12.5 with 72% neutrophils. Hemoglobin is 15.3. Chemistry studies are unremarkable with normal renal function. Glucose is 178. LFTs and lipase are normal. Initial troponin is normal at 68 but 2-hour repeat troponin is now 363. On repeat evaluation patient is resting comfortably and states he was nearly falling asleep. He states when he arrived his chest pain was a 10 and it is currently a 6. I will repeat an EKG at this time. If no inferior changes are noted we will try sublingual nitroglycerin for pain control. He will require admission for further treatment. Repeat EKG is sinus rhythm at 74 bpm with no acute ischemia. I will speak with both cardiology as well as hospitalist for admission. Discharge Plan Dx/Rx/DC Orders Clinical Impression: Non-ST elevation SD (NSTEMI) Disposition Disposition: Acute Care Hospital [facility]
[2024-03-12] MEDS: Aspirin 81 MG TAB.CHEW 192 MG PO (21:48)
[2024-03-12] MEDS: Mag Hydrox/Al Hydrox/Simeth 30 ML UDC PO (21:48)
[2024-03-12 22:02] LABS: Absolute Lymphocyte Count 2.61 X10^3/uL (0.83-4.51); Basophil# 0.03 X10^3/uL; Basophil% 0.2 % (0-1); Eosinophil# 0.07 X10^3/uL; Eosinophils% 0.6 % (0-5); Hematocrit 47.5 % (40-54); Hemoglobin 15.3 g/dL (13.0-16.5); Lymphocyte # 2.61 X10^3/ul (0.83-4.51); Lymphocyte % 20.9 % (19-41); Mean Corp Hgb Conc 32.2 g/dL (32-36); Mean Corpuscular Hgb 28.2 pg (27.0-32.0); Mean Corpuscular Volume 87.5 fL (80-94); Mean Platelet Vol. 9.2 fl (6.2-12.0); Monocyte% 5.6 % (0-10); NRBC Flagged by Analyzer 0 % (0-5); Neutrophil # 9.03 X10^3/uL (2.7-7.7); Neutrophil % 72.4 % (47-70); Platelet Count 244 K/mm3 (150-450); RBC Distribution Width CV 13.9 % (11.6-14.6); RBC Distribution Width SD 44.6 fl (35.1-43.9); Red Blood Count 5.43 M/mm3 (4.6-6.2); White Blood Count 12.5 K/mm3 (4.4-11.0)
[2024-03-12 22:16] LABS: ALB/GLOB Ratio 0.8 RATIO (0.9-2.4); AST(SGOT) 23 U/L (15-37); Alanine Aminotransfer ALT/SGPT 31 U/L (16-61); Albumin, Serum 3.7 g/dL (3.2-5.0); Alkaline Phosphatase 95 U/L (45-117); Anion Gap 7 (5-15); BUN 23 mg/dL (7-18); BUN/Creat Ratio 22.8 RATIO (10-20); Calcium,Total 9.4 mg/dL (8.5-10.1); Chloride 104 mmol/L (98-107); Creatinine, Serum 1.01 mg/dL (0.70-1.30); EST Glomerular Filtration Rate 75 mL/min (>60); Est Glom Filt Rate - Afr Amer 90 mL/min (>60); Globulin 4.4 g/dL (2.2-4.2); Glucose 178 mg/dL (74-106); Lipase 30 U/L (13-75); Potassium 4.2 mmol/L (3.5-5.1); Protein, Total 8.1 g/dL (6.4-8.2); Sodium Level 137 mmol/L (136-145); Troponin-I HS (w/2H Reflex) 68 pg/mL (3.0-78.0)
--- NOTE | 2024-03-12 22:50 | RAD_ITS ---
EXAM: XR CHEST, 1 VIEW CLINICAL INDICATION: chest pain TECHNIQUE: Frontal view of the chest. COMPARISON: Previous chest radiographs of 03/09/2012 and 03/17/11. 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 Chronic blunting of the left lateral costophrenic angle by pleural thickening. No consolidation or edema. No pneumothorax. No effusion. HEART: Upper normal heart size with normal pulmonary vasculature. MEDIASTINUM: Stable moderate elongation of the thoracic aorta. Trachea is midline. No mediastinal widening. BONES/JOINTS: Thoracic degenerative spurring. No acute fracture. SOFT TISSUES: Chronic eventration of the left hemidiaphragm. RAD/Chest 1 View (Portable) IMPRESSION: No significant interval change. No radiographic evidence of acute cardiopulmonary disease. Electronically Signed: Riley Tracy MD at 22:25 EDT ,
[2024-03-12 22:52] VITALS: BP 149/90; PULSE 83; RESP 17; O2SAT 94
--- NOTE | 2024-03-12 22:53 | ED.RN ---
This RN was attempting to get his home med list entered when the doctor came in. This RN left and returned to finish the home med list when the patient stated this ER is the worst I have been to. I never have a call light when I come here. This RN replied i am so sorry, I had a squad come in and I had to step away, plus the doctor needed to do an assessment. The pt stated the manager channel needs to make sure the person responsible puts the call lights back up. This RN replied we clean our own rooms, again, I am very sorry that you did not have your call light. The patient stated he was going to write a letter to complain.
[2024-03-12 23:00] VITALS: PULSE 83; RESP 20; O2SAT 93
[2024-03-12 23:18] LABS: Reflex Troponin-HS? (from REC) Y
[2024-03-12 23:44] LABS: Troponin-I HS 363 pg/mL (3.0-78.0)
--- NOTE | 2024-03-12 23:44 | EKG12_ITS ---
Test Reason : REPEAT Blood Pressure : / mmHG Vent. Rate : 074 BPM Atrial Rate : 074 BPM P-R Int : 226 ms QRS Dur : 076 ms QT Int : 398 ms P-R-T Axes : 066 043 068 degrees QTc Int : 441 ms Sinus rhythm with marked sinus arrhythmia with 1st degree A-V block Otherwise normal ECG Confirmed by CRUZ JOHNSON, VANESSA ([id number]), health editor ZURI DÍAZ ([id number]) on 03/14/2024 2:03:46 PM Referred By: Confirmed By:VANESSA ARROYO MD
[2024-03-13] VITALS (17 sets, daily range): BP systolic 110–158; BP diastolic 63–97; PULSE 63–80; RESP 13–19; TEMP 36.2–36.9; O2SAT 93–99; BMI 28.0
--- NOTE | 2024-03-13 00:01 | PCM.HP.STD ---
HPI - General General Date of Admission: 03/13/24 Date of Service: 03/13/24 Chief Complaint: Chest pain. HPI Narrative The patient is an 83 y/o M w/ PMHx: CKD stage II per GFR trending, Valvular heart disease, Hx CVA with left-sided weakness, HTN, HLD, Diabetes mellitus type II, COPD, BPH without obstructive symptoms, Hypothyroidism, Nonobstructive CAD who presents initially to the [facility] ED on 03/12/24 with history of 3 days of onset of chest discomfort in the midsternal region described as a heaviness notes that its specifically has been following dinner lasting approximately 30 minutes unfortunately on evening of presentation he had recurrent discomfort which was more severe in nature and ongoing lasting at least 2 hours prompting eventual EMS call reporting the pain 8 out of 10 in severity with mild diaphoresis with no dyspnea, nausea or emesis associated which initiated when he was just sitting at rest. Upon initial ED arrival patient does report to ED staff that he is been under a lot of stress as he is the primary caregiver for his noting that she is handicapped. Patient upon current evaluation notes that his chest discomfort is 6 out of 10 in severity. He was administered sublingual nitroglycerin and notes no improvement at all with this regimen. He does note that after the nitroglycerin he did have some facial flushing and warmth. His blood pressure did decrease after the nitroglycerin. Workup in the ED included T98, heart rate 80, BP 135/81, respiratory rate 24, 95% on room air with most recent repeat vitals heart rate 83, BP 149/90, respiratory rate 20, 93% on room air, CBC with WBC 12.5, human 15.3, platelet 244 with left shift, CMP with BUN/creatinine 23/1.01, GFR 75, glucose 178, hepatic profile not marked appearing, lipase 30, initial troponin 68 with repeat delta 363, chest x-ray with no acute cardiopulmonary finding, EKG initially with sinus rhythm with first-degree AV block with no acute evidence of ischemia with repeat EKG similarly with sinus rhythm with no acute evidence of ischemia. In the ED patient ministered aspirin 192 mg p.o. x 1, GI cocktail, sublingual nitroglycerin. [facility] Medical History Nonrheumatic aortic (valve) stenosis Valvular heart disease Essential hypertension Nonrheumatic aortic (valve) insufficiency Hyperlipidemia Atherosclerotic heart disease of redding coronary artery without angina pectoris Fatigue GERD (gastroesophageal reflux disease) Sjogrens syndrome CVA (cerebral vascular accident) ischemic stroke Hypothyroidism BPH without obstruction/lower urinary tract symptoms Dizziness and giddiness Type II diabetes mellitus, uncontrolled Chronic obstructive pulmonary disease with acute exacerbation Home Medications ?Medication ?Instructions ?Recorded ?Last Taken ?Type clopidogrel 75 mg tablet 75 mg PO DAILY 08/27/15 Unknown History levothyroxine 88 mcg tablet 88 mcg PO DAILY 08/27/15 Unknown History cholecalciferol (vitamin D3) 50 50 mcg PO DAILY 05/15/20 Unknown History mcg (2,000 unit) tablet cevimeline 30 mg capsule 30 mg PO DAILY 05/19/21 Unknown History cyanocobalamin (vitamin B-12) 2,500 mcg PO MOWEFR 05/19/21 Unknown History 2,500 mcg tablet glucosamine sulfate 1,000 mg tablet 1,000 mg PO DAILY 05/19/21 Unknown History amlodipine 5 mg tablet 5 mg PO DAILY 05/25/22 Unknown History losartan 50 mg tablet 50 mg PO DAILY 05/25/22 Unknown History Allergy/AdvReac Type Severity Reaction Status Date / Time clindamycin Allergy Severe Swelling Verified 09/20/23 14:37 codeine Allergy Severe HALLUCINATI Verified 09/20/23 14:37 ONS acetaminophen (From Percocet) AdvReac Severe Vomiting,Na Verified 09/20/23 14:37 usea oxycodone (From Percocet) AdvReac Severe Vomiting,Na Verified 09/20/23 14:37 usea indomethacin AdvReac Vomiting Verified 09/20/23 14:37 Family History Father Myocardial infarction Mother CAD (coronary artery disease) Brother CHF (congestive heart failure) Sister CAD (coronary artery disease) Other Diabetes Heart disease Hypertension Thyroid disorder Surgical History History of knee surgery History of cataract surgery History of tonsillectomy Social History household members: spouse Smoking Status: Never smoker second hand exposure: No alcohol intake: former details: stopped drinking 1988 substance use type: does not use what type of physical activity do you participate in: bicycling and weight training frequency: 5-6 times per week madalyn/zoroastrian: Latter-Day seatbelt use: always ROS ROS Narrative Admission Review of Systems: CONSTITUTIONAL: No weight loss, fever, chills, + weakness or fatigue. HEENT: Eyes: No visual loss, blurred vision, double vision or yellow sclerae. Ears, Nose, Throat: No hearing loss, sneezing, congestion, runny nose or sore throat. SKIN: No rash or itching, lesions, wounds. CARDIOVASCULAR: + Chest discomfort, dyspepsia. No palpitations, edema, orthopnea, syncopal events. RESPIRATORY: No dyspnea, cough or sputum, wheezing, hemoptysis. GASTROINTESTINAL: + Mild dyspepsia. No anorexia, nausea, vomiting or diarrhea, abdominal pain, melena, BRBPR. GENITOURINARY: No dysuria, frequency, urgency or retention. NEUROLOGICAL: + History of prior stroke with chronic mild hemiplegia, chronic paresthesias. No headache, dizziness, syncope, paralysis, ataxia, numbness or tingling in the extremities, focal weakness, change in bowel or bladder control, seizure. MUSCULOSKELETAL: + muscle, back pain, joint pain or stiffness. HEMATOLOGIC: No anemia. + Easy bleeding/bruising. LYMPHATICS: No enlarged nodes. No history of splenectomy. PSYCHIATRIC: No history of depression or anxiety. ENDOCRINOLOGIC: + History of diaphoresis. No cold or heat intolerance. No polyuria or polydipsia. ALLERGIES: No history of asthma, hives, eczema or rhinitis. Vital Signs Vital Signs Vital Signs: 03/12/24 21:09 03/12/24 21:17 03/12/24 21:24 Temperature 98 F Temperature Source Oral Pulse Rate 80 Respiratory Rate 24 H Respiratory Effort Normal Non-Labored Blood Pressure 135/81 H Blood Pressure Mean 99 Pulse Ox 95 Oxygen Delivery Method Room Air Room Air 03/12/24 22:52 03/12/24 23:00 Temperature Temperature Source Pulse Rate 83 83 Respiratory Rate 17 20 H Respiratory Effort Blood Pressure 149/90 H Blood Pressure Mean 109 Pulse Ox 94 93 Oxygen Delivery Method Room Air Physical Exam Narrative Physical Examination: General: Awake, alert, oriented x 3 and cooperative, seated upright in the ED bed, fatigued, notes chest discomfort currently 6 out of 10 in severity, no improvement with nitroglycerin but notes had onset of mild facial warmth. Skin: Normal color, normal turgor, no icterus, no cyanosis except very staged ecchymoses especially to the upper extremities. HEENT: AT/NC, EOMI, PERRLA, MMM, no carotid bruits or JVD noted. Lungs: Mildly diminished greater bases, appropriate effort, no rales, ronchi or wheezing. Heart: Regular rate and rhythm; no gallop, rub audible. Abdomen: Soft, NTTP, ND, mildly hyperactive BS, no appreciated HSM. Extremities: No cyanosis, clubbing, or edema. Neurological: Patient awake, alert, oriented as noted, cognitive function intact; pupils equally reactive to light and accommodation, cranial nerves grossly normal, moving all 4 extremities, history of previous stroke with mild left-sided weakness, strength moderately globally decreased secondary to acute presentation complaints. Psychiatric: Affect appears fatigued otherwise normal, no acute evidence of depressive or anxiety feelings. Results Lab / Micro Data 03/12/24 21:16 03/12/24 21:16 Labs: Laboratory Results - last 24 hr 03/12/24 21:16: WBC 12.5 H, RBC 5.43, Hgb 15.3, Hct 47.5, MCV 87.5, MCH 28.2, MCHC 32.2, RDW Std Deviation 44.6 H, RDW Coeff of Kam 13.9, Plt Count 244, MPV 9.2, Immature Gran % (Auto) 0.300, Neut % (Auto) 72.4 H, Lymph % (Auto) 20.9, Brooks % (Auto) 5.6, Eos % (Auto) 0.6, Baso % (Auto) 0.2, Absolute Neuts (auto) 9.0 H, Absolute Lymphs (auto) 2.61, Nucleated RBC % 0, Sodium 137, Potassium 4.2, Chloride 104, Carbon Dioxide 26.0, Anion Gap 7, BUN 23 H, Creatinine 1.01, Est GFR (MDRD) Af Amer 90, Est GFR (MDRD) Non-Af 75, BUN/Creatinine Ratio 22.8 H, Glucose 178 H, Calcium 9.4, Total Bilirubin 0.30, AST 23, ALT 31, Alkaline Phosphatase 95, Troponin I High Sens 68, Total Protein 8.1, Albumin 3.7, Globulin 4.4 H, Albumin/Globulin Ratio 0.8 L, Lipase 30 03/12/24 23:15: Troponin I High Sens 363 H* Imaging Radiology Impression Chest X-Ray 03/12/24 22:50 IMPRESSION: No significant interval change. No radiographic evidence of acute cardiopulmonary disease. Electronically Signed: Riley Tracy MD at 22:25 EDT , Assessment & Plan Assessment/Plan (1) Non-ST elevation GA (NSTEMI): PLAN: Plan The patient is an 83 y/o M w/ PMHx: CKD stage II per GFR trending, Valvular heart disease, Hx CVA with left-sided weakness, HTN, HLD, Diabetes mellitus type II, COPD, BPH without obstructive symptoms, Hypothyroidism, Nonobstructive CAD who presents initially to the [facility] ED on 03/12/24 with history of 3 days of onset of chest discomfort in the midsternal region notes that its specifically has been following dinner lasting approximately 30 minutes unfortunately on evening of presentation he had recurrent discomfort which was more severe in nature and ongoing lasting at least 2 hours prompting eventual EMS call reporting the pain 8 out of 10 in severity with mild diaphoresis which initiated when he was just sitting at rest. #1. Chest Pain w/ Acute NSTEMI: EKG initially with sinus rhythm with first-degree AV block with no acute evidence of ischemia with repeat EKG similarly with sinus rhythm with no acute evidence of ischemia, CXR w/ no acute cardiopulmonary findings, initial with intervention troponin 66 with repeat delta ruling in his NSTEMI at 363. Will admit to PCU, maintain on a monitored bed, continue serial cardiac enzymes and EKGs. Obtain magnesium level upon admission. Will maintain on heparin drip. Continue medical management w/ asa, adding low-dose beta-jessie and statin therapy w/ AM FLP. ECHO requested. Cardiology consulted. Will judiciously hydrate in preparation for catheterization potential. Maintain NPO after midnight. Additionally in case dyspepsia is associated will maintain on PPI and have as needed Mylanta. ASA, fentanyl as needed given NG trial did not cause any improvement with hypotension associated. #2. History CVA: Chronic left-sided mild hemiplegia, will continue patient Plavix, adding statin as noted above, continue hypertensive regimen, noted diabetic history but per current list does not appear to be on regimen, evaluating further. #3. Diabetes mellitus type II: Clarifying but does not appear to be on regimen, hemoglobin A1c requested, NPO status for possible cardiac catheterization however will resume ADA diet following, accu checks w/ ISS. #4. CAD: Following with Dr. Ramos, most recent cardiology visit 12/29/23, noted mild coronary artery disease with remote catheterization 20 years prior with no PCI history, #5. Chronic Kidney Disease Stage II per GFR trending: Admission BUN/Cr 23/1.01, GFR 75, baseline renal function 0.8-1.1, repeat BMP in AM. #6. Valvular heart disease: Most recent echocardiogram noted 08/06/2023 with mild concentric LVH, LVEF 55%, stage I diastolic dysfunction, mild TBI, mild diffuse aortic valve calcification, mild aortic stenosis. #7. Hypertension: Continue home regimen including losartan, amlodipine, adding low-dose beta-jessie given presentation as noted, PRN hydralazine. #8. Hyperlipidemia: Adding statin therapy as noted, FLP in AM. #9. Hypothyroidism: We will continue patient home levothyroxine regimen. #10. BPH without obstructive symptoms: Per current list does not appear to be on regimen but clarifying to be cautious. #11. DVT prophylaxis: Heparin drip as noted. #13. CODE status: Patient STEWART is his primary however she is debilitated and handicapped therefore he notes his son Socrates is the decision-maker who is the secondary and living will is currently in place. Discussed CODE status at length including difference between FULL code, DNR-CCA and DNR-CC status. Following discussions about the differences in these status, requested DNR-CCA, no intubation status. Advanced Care Planning Face to Face Time: 16 minutes. Charges/Coding Visit Charges Inpatient E&M: 20234 Init Hosp L3 Procedures Hospitalists Procedures: 22182 Advncd Care Plan 30 Min
[2024-03-13] MEDS: Nitroglycerin SL (ED/IMG/CATH) 0.4 MG TABLET SL (00:05)
--- NOTE | 2024-03-13 00:09 | EKG12_ITS ---
Test Reason : CP ADMISSION Blood Pressure : / mmHG Vent. Rate : 065 BPM Atrial Rate : 065 BPM P-R Int : 236 ms QRS Dur : 080 ms QT Int : 418 ms P-R-T Axes : 018 037 063 degrees QTc Int : 434 ms Sinus rhythm with 1st degree A-V block Otherwise normal ECG When compared with ECG of 12-MAR-2024 23:53, MANUAL COMPARISON REQUIRED, DATA IS UNCONFIRMED Confirmed by Juan Carlos Ramos [id number]), acquisition editor ZURI DÍAZ ([id number]) on 03/13/2024 9:28:07 AM Referred By: ANDREW Confirmed By:Juan Carlos Ramos
[2024-03-13 00:21] LABS: Prothrombin Time (Protime)PT. 12.9 SECONDS (11.7-14.9)
[2024-03-13 00:22] LABS: Partial Thromboplast Time 36.2 Seconds (24.1-36.2)
[2024-03-13] MEDS: Heparin Injection (Vial) 5,000 UNIT/ML VIAL 4000 UNIT IV (00:43)
[2024-03-13] MEDS: HEPARIN/D5w 25,000 UNITS 25,000 UNITS/250 ML IV.SOLN. 10 UNITS CONT INF (00:47)
[2024-03-13 00:57] LABS: Magnesium 2.2 mg/dL (1.6-2.6)
--- NOTE | 2024-03-13 01:07 | ECHOD_ITS ---
Reason For Study: NSTEMI Procedure This was a 2D Doppler, Color Flow transthoracic echocardiogram. Exam performed portable in patient room. Left Ventricle Normal LV size. Left ventricular systolic function is normal. The estimated ejection fraction is 60 %. Stage 1 diastolic dysfunction. No regional wall motion abnormalities noted. Right Ventricle Normal RV size. Normal systolic function. Atria Normal left atrium. Normal right atrium. Mitral Valve Normal mitral valve. Tricuspid Valve Normal tricuspid valve. Mild tricuspid valve insufficiency. Pulmonary artery systolic pressure is 35 mmHg. Aortic Valve Trisinus/trileaflet aortic valve. Peak aortic valve gradient 36 mmHg. Mean aortic valve gradient 24 mmHg. Mild aortic stenosis. Pulmonic Valve Normal pulmonic valve. Great Vessels Normal aortic root. The pulmonary artery is normal size. Normal inferior vena cava. Pericardium/Pleural No pericardial effusion. MMode/2D Measurements & Calculations RVDd: 3.5 cm LVOT diam: 2.0 cm Ao root diam: 3.3 cm LVOT area: 3.1 cm2 LAV(MOD-bp): 70.2 ml SV(MOD-sp4): 59.7 ml LVAd ap4: 34.9 cm2 LAV(MOD-bp) Indexed: 30.5 ml/m2 LVLd ap4: 9.1 cm LAV(MOD-sp2): 94.9 ml EDV(MOD-sp4): 112.6 ml LAV(MOD-sp4): 51.3 ml EDV(sp4-el): 113.6 ml LVAs ap4: 21.3 cm2 LVLs ap4: 8.0 cm ESV(MOD-sp4): 52.9 ml ESV(sp4-el): 47.9 ml EF(MOD-sp4): 53.0 % EF(sp4-el): 57.8 % SV(sp4-el): 65.7 ml LA A4 area: 19.0 cm2 LA dimension(2D): 4.2 cm TAPSE: 2.7 cm RA A4 area: 19.9 cm2 Time Measurements MV dec time: 0.35 sec Doppler Measurements & Calculations MV E max christiano: 66.0 cm/sec Lat Peak E' Christiano: 7.3 cm/sec Med Peak E' Christiano: 6.3 cm/sec MV A max christiano: 107.5 cm/sec E/E' lat: 9.1 E/E' med: 10.4 MV E/A: 0.61 MV V2 max: 123.1 cm/sec MV dec slope: 199.7 cm/sec2 Ao V2 max: 300.2 cm/sec MV max P.1 mmHg Ao max P.2 mmHg MV V2 mean: 55.7 cm/sec Ao V2 mean: 234.3 cm/sec MV mean P.6 mmHg Ao mean P.8 mmHg MV V2 VTI: 31.2 cm Ao V2 VTI: 75.2 cm MVA(VTI): 4.2 cm2 AV (velocity ratio): 0.56 EDUARDA(I,D): 1.7 cm2 EDUARDA(V,D): 1.5 cm2 LV V1 max: 150.8 cm/sec SV(LVOT): 129.9 ml TR max christiano: 281.0 cm/sec LV V1 max P.1 mmHg TR max P.6 mmHg LV V1 mean P.8 mmHg LV V1 mean: 115.8 cm/sec LV V1 VTI: 42.3 cm ECHO/Echo Complete Interpretation Summary Normal LV size. Left ventricular systolic function is normal. Mean aortic valve gradient 24 mmHg. Mild aortic stenosis. The estimated ejection fraction is 60 %. Stage 1 diastolic dysfunction. Mild tricuspid valve insufficiency. Ordering Physician: Xiao Pizano Referring Physician: PRABHU HERNÁNDEZ Performed By: Massiel Urban and Student
[2024-03-13] MEDS: 0.9% Normal Saline (1000mL) 1,000 ML 100 ML IV (01:42)
[2024-03-13 02:07] LABS: Hemoglobin A1c 6.1 % (3.8-5.6)
[2024-03-13 04:54] LABS: Troponin-I HS 1904 pg/mL (3.0-78.0)
[2024-03-13] MEDS: Pantoprazole Sodium 20 MG Tablet PO ×2 (05:22→21:33)
[2024-03-13] MEDS: Clopidogrel Bisulfate 75 MG Tablet PO (05:22)
[2024-03-13] MEDS: Levothyroxine 88 MCG Tablet PO (05:22)
[2024-03-13] MEDS: Aspirin E.C. 81 MG Tablet PO (05:22)
[2024-03-13] MEDS: Metoprolol Tartrate 25 MG Tablet 12.5 MG PO (05:31)
[2024-03-13] MEDS: Losartan Potassium 50 MG Tablet PO (05:32)
[2024-03-13] MEDS: amLODIPine 5 MG Tablet PO (05:33)
[2024-03-13 07:03] LABS: Absolute Lymphocyte Count 2.95 X10^3/uL (0.83-4.51); Absolute Neutrophil Count 5.7 X10^3/uL (2.0-7.7); Basophil# 0.03 X10^3/uL; Basophil% 0.3 % (0-1); Eosinophil# 0.09 X10^3/uL; Eosinophils% 0.9 % (0-5); Hematocrit 44.2 % (40-54); Hemoglobin 14.1 g/dL (13.0-16.5); Lymphocyte # 2.95 X10^3/ul (0.83-4.51); Lymphocyte % 30.4 % (19-41); Mean Corp Hgb Conc 31.9 g/dL (32-36); Mean Corpuscular Hgb 27.2 pg (27.0-32.0); Mean Corpuscular Volume 85.3 fL (80-94); Monocyte# 0.89 X10^3/uL; Monocyte% 9.2 % (0-10); NRBC Flagged by Analyzer 0 % (0-5); Neutrophil # 5.72 X10^3/uL (2.7-7.7); Neutrophil % 58.9 % (47-70); Platelet Count 227 K/mm3 (150-450); RBC Distribution Width CV 13.7 % (11.6-14.6); RBC Distribution Width SD 42.8 fl (35.1-43.9); Red Blood Count 5.18 M/mm3 (4.6-6.2); White Blood Count 9.7 K/mm3 (4.4-11.0)
[2024-03-13 07:13] LABS: Partial Thromboplast Time 80.5 Seconds (24.1-36.2)
[2024-03-13 07:43] LABS: Bedside Glucose 119 mg/dL (74-106)
[2024-03-13 07:54] LABS: ALB/GLOB Ratio 0.9 RATIO (0.9-2.4); AST(SGOT) 44 U/L (15-37); Alanine Aminotransfer ALT/SGPT 26 U/L (16-61); Albumin, Serum 3.4 g/dL (3.2-5.0); Alkaline Phosphatase 92 U/L (45-117); Anion Gap 6 (5-15); BUN 17 mg/dL (7-18); BUN/Creat Ratio 24.1 RATIO (10-20); Calcium,Total 8.8 mg/dL (8.5-10.1); Chloride 106 mmol/L (98-107); Cholesterol 192 mg/dL (200); EST Glomerular Filtration Rate 113 mL/min (>60); Est Glom Filt Rate - Afr Amer 137 mL/min (>60); Estimated Creatinine Clearance 88.84 ml/min; Globulin 3.9 g/dL (2.2-4.2); Glucose 121 mg/dL (74-106); High Density Lipoprotein 50 mg/dL; Potassium 3.9 mmol/L (3.5-5.1); Protein, Total 7.3 g/dL (6.4-8.2); Sodium Level 136 mmol/L (136-145); Triglycerides 175 mg/dL; Very Low Density Lipoprotein 35 mg/dL (5-40)
--- NOTE | 2024-03-13 08:06 | PCM.CONS.C ---
Assessment & Plan Assessment/Plan (1) Non-ST elevation MO (NSTEMI): PLAN: He does present with a non-ST elevation myocardial infarction. He underwent a cardiac catheterization this morning which demonstrated the following: Normal left main coronary artery. Left anterior descending artery with moderate diffuse disease involving the first second and third diagonal branches but with no areas of high-grade stenosis. There is moderate calcification noted in the mid left anterior descending artery. Left circumflex artery which is nondominant with mild diffuse disease. Dominant large right coronary artery with moderate diffuse disease involving the midsegment and the bifurcation of the posterior descending artery and the posterolateral vessel. The left ventricular ejection fraction is noted to be normal My recommendation at this stage will be to maximize medical therapy. Will recommend the addition of beta-jessie and high intensity statin. Nitrates can be used on a short-term basis. (2) Nonrheumatic aortic (valve) stenosis: PLAN: He does have evidence of mild aortic stenosis with a dilated aortic root Would recommend repeat echocardiogram to assess the above. Medical therapy will be recommended at this time (3) Essential hypertension: PLAN: His blood pressure appears to be under fair control and the plan be to continue the current medical therapy (4) Hyperlipidemia: QUALIFIERS: Hyperlipidemia type: unspecified Qualified Code(s): E78.5 - Hyperlipidemia, unspecified PLAN: Will recommend the addition of high intensity statin. I would recommend observing him overnight and discharging him in a.m. to medical therapy. HPI Consult Data Date of Consult: 03/13/24 HPI Narrative HPI Narrative: ROSMERY HERRERA, is a 83 M who presents with a history of 3 days of left-sided chest discomfort in the midsternal region described as a heaviness after dinner and lasting approximately 30 minutes. On the evening of presentation he had recurrent discomfort more severe in nature lasting a few hours prompting him to call the emergency medical squad. He was given sublingual nitroglycerin with mild improvement. He does have a history of hypertension, previous cerebrovascular accident with mild left-sided weakness, hyperlipidemia, diabetes mellitus, hypothyroidism. He takes care of his who is handicapped and he is the primary caregiver and has been exerting himself quite a bit. He was evaluated in the emergency room his EKG was noted to demonstrate sinus rhythm with no acute changes. Workup in the ED included T98, heart rate 80, BP 135/81, respiratory rate 24, 95% on room air with most recent repeat vitals heart rate 83, BP 149/90, respiratory rate 20, 93% on room air, CBC with WBC 12.5, human 15.3, platelet 244 with left shift, CMP with BUN/creatinine 23/1.01, GFR 75, glucose 178, hepatic profile not marked appearing, lipase 30, initial troponin 68 with repeat delta 363, chest x-ray with no acute cardiopulmonary finding, EKG initially with sinus rhythm with first-degree AV block with no acute evidence of ischemia with repeat EKG similarly with sinus rhythm with no acute evidence of ischemia. In the ED patient ministered aspirin 192 mg p.o. x 1, GI cocktail, sublingual nitroglycerin. Enzymes further elevated to over 1000. Cardiology was called for further evaluation and management. [facility] Medical History Nonrheumatic aortic (valve) stenosis Valvular heart disease Essential hypertension Nonrheumatic aortic (valve) insufficiency Hyperlipidemia Atherosclerotic heart disease of [place] coronary artery without angina pectoris Fatigue GERD (gastroesophageal reflux disease) Sjogrens syndrome CVA (cerebral vascular accident) ischemic stroke Hypothyroidism BPH without obstruction/lower urinary tract symptoms Dizziness and giddiness Type II diabetes mellitus, uncontrolled Chronic obstructive pulmonary disease with acute exacerbation Home Medications ?Medication ?Instructions ?Recorded ?Last Taken ?Type clopidogrel 75 mg tablet 75 mg PO DAILY 08/27/15 Unknown History levothyroxine 88 mcg tablet 88 mcg PO DAILY 08/27/15 Unknown History cholecalciferol (vitamin D3) 50 50 mcg PO DAILY 05/15/20 Unknown History mcg (2,000 unit) tablet cevimeline 30 mg capsule 30 mg PO DAILY 05/19/21 Unknown History cyanocobalamin (vitamin B-12) 2,500 mcg PO MOWEFR 05/19/21 Unknown History 2,500 mcg tablet glucosamine sulfate 1,000 mg tablet 1,000 mg PO DAILY 05/19/21 Unknown History amlodipine 5 mg tablet 5 mg PO DAILY 05/25/22 Unknown History losartan 50 mg tablet 50 mg PO DAILY 05/25/22 Unknown History psyllium husk 3.4 gram/5.4 gram 1 tbsp PO BID constipation 03/13/24 Unknown History oral powder (Metamucil) Allergy/AdvReac Type Severity Reaction Status Date / Time clindamycin Allergy Severe Swelling Verified 12/11/23 14:37 codeine Allergy Severe HALLUCINATI Verified 09/20/23 14:37 ONS acetaminophen (From Percocet) AdvReac Severe Vomiting,Na Verified 09/20/23 14:37 usea oxycodone (From Percocet) AdvReac Severe Vomiting,Na Verified 09/20/23 14:37 usea indomethacin AdvReac Vomiting Verified 09/20/23 14:37 Family History Father Myocardial infarction Mother CAD (coronary artery disease) Brother CHF (congestive heart failure) Sister CAD (coronary artery disease) Other Diabetes Heart disease Hypertension Thyroid disorder Surgical History History of knee surgery History of cataract surgery History of tonsillectomy Social History household members: spouse Smoking Status: Never smoker second hand exposure: No alcohol intake: former details: stopped drinking 1988 substance use type: does not use what type of physical activity do you participate in: bicycling and weight training frequency: 5-6 times per week madalyn/catholic: Jainism seatbelt use: always ROS Constitutional Constitutional: Denies fever(s) or weight loss Eyes Eyes: Reports systems reviewed and no addt'l complaints, except as documented ENT HEENT: Reports systems reviewed and no addt'l complaints, except as documented Cardiovascular Cardiovascular: Reports chest pain at rest, chest pain with activity, dyspnea at rest and dyspnea on exertion; Denies edema, palpitations or paroxysmal nocturnal dyspnea Respiratory/Chest Respiratory/Chest: Denies dyspnea on exertion, productive cough, shortness of breath at rest or shortness of breath with exertion Gastrointestinal Gastrointestinal: Denies change in bowel habits, nausea, vomiting or weight changes Genitourinary Genitourinary: Denies difficulty urinating Musculoskeletal Musculoskeletal: Denies joint stiffness or muscle weakness Integumentary Integumentary: Denies lesions Neurologic Neurologic: Denies dizziness or syncope Psychiatric Psychiatric: Denies anxiety Endocrine Endocrinology: Denies excessive sweating or fatigue Hematologic/Lymphatic Hematologic/Lymphatic: Denies anemia Allergic/Immunologic Allergic/Immunologic: Denies seasonal rhinorrhea Physical Exam Const alert, oriented x3 and no apparent distress General Appearance: cooperative HEENT hearing grossly normal bilaterally Head and Scalp: atraumatic Eyes EOMs intact bilaterally Neck General: normal visual inspection Chest inspection of chest normal and palpation of chest normal Resp normal respiratory effort Auscultation: clear to auscultation bilaterally Cardio regular rate, regular rhythm, S1 normal heart sound and S2 normal heart sound Jugular Venous Distention: JVD GI normal to inspection, nondistended, normoactive bowel sounds Extremity normal capillary refill and no pedal edema Peripheral Pulses: Yes pulses 2+ throughout and femoral pulses present Skin no rashes or lesions noted Neuro oriented x3 and CN's II-XII intact bilaterally Psych Appearance: grossly normal and appropriate Risk Stratification Risk Stratification Applicable: Yes Age >/= 65: Yes >/= 3 CAD Risk Factors (HTN, HLD, DM, family hx of CAD, or current smoker): Yes Aspirin Use in the Past 7 Days: No Severe Angina (>/= episodes in 24 hours): Yes EKG ST Changes >/= 0.5mm: No Positive Cardiac Marker: Yes KATHRYN Risk Stratification Score: 4 KATHRYN % Risk: 20% Risk Objective Data Vital Signs: Vital Signs Temp Pulse Resp BP Pulse Ox O2 Del Method 97.2 F L 63 15 135/73 H 99 Room Air 03/13/24 07:50 03/13/24 07:50 03/13/24 07:50 03/13/24 07:50 03/13/24 07:50 03/13/24 07:50 Oxygen Delivery Method Room Air Weight: 224 lb 3.362 oz Body Mass Index (BMI) 28.0 Lab / Micro Data 03/13/24 06:45 03/13/24 06:45 Labs: Laboratory Results - last 24 hr 03/12/24 21:16: WBC 12.5 H, RBC 5.43, Hgb 15.3, Hct 47.5, MCV 87.5, MCH 28.2, MCHC 32.2, RDW Std Deviation 44.6 H, RDW Coeff of Kam 13.9, Plt Count 244, MPV 9.2, Immature Gran % (Auto) 0.300, Neut % (Auto) 72.4 H, Lymph % (Auto) 20.9, [place] % (Auto) 5.6, Eos % (Auto) 0.6, Baso % (Auto) 0.2, Absolute Neuts (auto) 9.0 H, Absolute Lymphs (auto) 2.61, Nucleated RBC % 0, PT 12.9, INR 1.0, APTT 36.2, Sodium 137, Potassium 4.2, Chloride 104, Carbon Dioxide 26.0, Anion Gap 7, BUN 23 H, Creatinine 1.01, Est GFR (MDRD) Af Amer 90, Est GFR (MDRD) Non-Af 75, BUN/Creatinine Ratio 22.8 H, Glucose 178 H, Hemoglobin A1c 6.1 H, Calcium 9.4, Total Bilirubin 0.30, AST 23, ALT 31, Alkaline Phosphatase 95, Troponin I High Sens 68, Total Protein 8.1, Albumin 3.7, Globulin 4.4 H, Albumin/Globulin Ratio 0.8 L, Lipase 30 03/12/24 23:15: Magnesium 2.2, Troponin I High Sens 363 H* 03/13/24 03:35: Troponin I High Sens 1904 H* 03/13/24 06:45: WBC 9.7, RBC 5.18, Hgb 14.1, Hct 44.2, MCV 85.3, MCH 27.2, MCHC 31.9 L, RDW Std Deviation 42.8, RDW Coeff of Kam 13.7, Plt Count 227, MPV 9.0, Immature Gran % (Auto) 0.300, Neut % (Auto) 58.9, Lymph % (Auto) 30.4, [place] % (Auto) 9.2, Eos % (Auto) 0.9, Baso % (Auto) 0.3, Absolute Neuts (auto) 5.7, Absolute Lymphs (auto) 2.95, Nucleated RBC % 0, APTT 80.5 H, Sodium 136, Potassium 3.9, Chloride 106, Carbon Dioxide 24.0, Anion Gap 6, BUN 17, Creatinine 0.70, Estim Creat Clear Calc 88.84, Est GFR (MDRD) Af Amer 137, Est GFR (MDRD) Non-Af 113, BUN/Creatinine Ratio 24.1 H, Glucose 121 H, Calcium 8.8, Total Bilirubin 0.50, AST 44 H, ALT 26, Alkaline Phosphatase 92, Total Protein 7.3, Albumin 3.4, Globulin 3.9, Albumin/Globulin Ratio 0.9, Triglycerides 175, Cholesterol 192, LDL Cholesterol 107, VLDL Cholesterol 35, HDL Cholesterol 50 03/13/24 07:03: POC Glucose 119 H Cardiology Labs/Tests 03/12/24 21:16: WBC 12.5 H, RBC 5.43, Hgb 15.3, Hct 47.5, MCV 87.5, MCH 28.2, MCHC 32.2, Plt Count 244, MPV 9.2, Immature Gran % (Auto) 0.300, Neut % (Auto) 72.4 H, Lymph % (Auto) 20.9, [place] % (Auto) 5.6, Eos % (Auto) 0.6, Baso % (Auto) 0.2, Absolute Neuts (auto) 9.0 H, Nucleated RBC % 0, PT 12.9, INR 1.0, APTT 36.2, Sodium 137, Potassium 4.2, Chloride 104, Carbon Dioxide 26.0, Anion Gap 7, BUN 23 H, Creatinine 1.01, Est GFR (MDRD) Af Amer 90, Est GFR (MDRD) Non-Af 75, BUN/Creatinine Ratio 22.8 H, Glucose 178 H, Hemoglobin A1c 6.1 H, Calcium 9.4, Total Bilirubin 0.30 03/12/24 23:15: Magnesium 2.2 03/13/24 06:45: WBC 9.7, RBC 5.18, Hgb 14.1, Hct 44.2, MCV 85.3, MCH 27.2, MCHC 31.9 L, Plt Count 227, MPV 9.0, Immature Gran % (Auto) 0.300, Neut % (Auto) 58.9, Lymph % (Auto) 30.4, [place] % (Auto) 9.2, Eos % (Auto) 0.9, Baso % (Auto) 0.3, Absolute Neuts (auto) 5.7, Nucleated RBC % 0, APTT 80.5 H, Sodium 136, Potassium 3.9, Chloride 106, Carbon Dioxide 24.0, Anion Gap 6, BUN 17, Creatinine 0.70, Est GFR (MDRD) Af Amer 137, Est GFR (MDRD) Non-Af 113, BUN/Creatinine Ratio 24.1 H, Glucose 121 H, Calcium 8.8, Total Bilirubin 0.50, Triglycerides 175, Cholesterol 192, LDL Cholesterol 107, VLDL Cholesterol 35, HDL Cholesterol 50 Rhythm: EKG: ECHO: Stress Test: Cardiac Cath: PCI: CT Surgery: Holter monitor: EPS: PPM: CXR: Chest CT Scan: Radiography Diagnostic Testing: Radiology Impression Chest X-Ray 03/12/24 22:50 IMPRESSION: No significant interval change. No radiographic evidence of acute cardiopulmonary disease. Electronically Signed: Riley Tracy MD at 22:25 EDT ,
--- NOTE | 2024-03-13 09:33 | CASEMGMT ---
Insurance review for hospitals In-network with Medicare insurance if transfer is recommended is as follows: [facility], [place], [facility], [facility], [facility], [facility], [facility] ([facility]), [facility], [facility], and . Trini Hill, Discharge Planning Asst
--- NOTE | 2024-03-13 09:35 | PN.HOSP_ITS ---
Reason for Visit Reason for Visit: Diagnoses Non-ST elevation (NSTEMI) myocardial infarction (03/13/24) Subjective Subjective Feels well. No chest pain. Objective Data Objective Data Vital Signs: Vital Signs Temp Pulse Resp BP Pulse Ox O2 Del Method 36.2 C L 63 15 135/73 H 99 Room Air 03/13/24 07:50 03/13/24 07:50 03/13/24 07:50 03/13/24 07:50 03/13/24 07:50 03/13/24 07:50 Oxygen Delivery Method Room Air Weight: 101.7 kg Body Mass Index (BMI) 28.0 Lab / Micro Data 03/13/24 06:45 03/13/24 06:45 Labs: Laboratory Results - last 24 hr 03/12/24 21:16: WBC 12.5 H, RBC 5.43, Hgb 15.3, Hct 47.5, MCV 87.5, MCH 28.2, MCHC 32.2, RDW Std Deviation 44.6 H, RDW Coeff of Kam 13.9, Plt Count 244, MPV 9.2, Immature Gran % (Auto) 0.300, Neut % (Auto) 72.4 H, Lymph % (Auto) 20.9, [place] % (Auto) 5.6, Eos % (Auto) 0.6, Baso % (Auto) 0.2, Absolute Neuts (auto) 9.0 H, Absolute Lymphs (auto) 2.61, Nucleated RBC % 0, PT 12.9, INR 1.0, APTT 36.2, Sodium 137, Potassium 4.2, Chloride 104, Carbon Dioxide 26.0, Anion Gap 7, BUN 23 H, Creatinine 1.01, Est GFR (MDRD) Af Amer 90, Est GFR (MDRD) Non-Af 75, BUN/Creatinine Ratio 22.8 H, Glucose 178 H, Hemoglobin A1c 6.1 H, Calcium 9.4, Total Bilirubin 0.30, AST 23, ALT 31, Alkaline Phosphatase 95, Troponin I High Sens 68, Total Protein 8.1, Albumin 3.7, Globulin 4.4 H, Albumin/Globulin Ratio 0.8 L, Lipase 30 03/12/24 23:15: Magnesium 2.2, Troponin I High Sens 363 H* 03/13/24 03:35: Troponin I High Sens 1904 H* 03/13/24 06:45: WBC 9.7, RBC 5.18, Hgb 14.1, Hct 44.2, MCV 85.3, MCH 27.2, MCHC 31.9 L, RDW Std Deviation 42.8, RDW Coeff of Kam 13.7, Plt Count 227, MPV 9.0, Immature Gran % (Auto) 0.300, Neut % (Auto) 58.9, Lymph % (Auto) 30.4, [place] % (Auto) 9.2, Eos % (Auto) 0.9, Baso % (Auto) 0.3, Absolute Neuts (auto) 5.7, Absolute Lymphs (auto) 2.95, Nucleated RBC % 0, APTT 80.5 H, Sodium 136, Potassium 3.9, Chloride 106, Carbon Dioxide 24.0, Anion Gap 6, BUN 17, Creatinine 0.70, Estim Creat Clear Calc 88.84, Est GFR (MDRD) Af Amer 137, Est GFR (MDRD) Non-Af 113, BUN/Creatinine Ratio 24.1 H, Glucose 121 H, Calcium 8.8, Total Bilirubin 0.50, AST 44 H, ALT 26, Alkaline Phosphatase 92, Total Protein 7.3, Albumin 3.4, Globulin 3.9, Albumin/Globulin Ratio 0.9, Triglycerides 175, Cholesterol 192, LDL Cholesterol 107, VLDL Cholesterol 35, HDL Cholesterol 50 03/13/24 07:03: POC Glucose 119 H Radiography Diagnostic Testing: Radiology Impression Chest X-Ray 03/12/24 22:50 IMPRESSION: No significant interval change. No radiographic evidence of acute cardiopulmonary disease. Electronically Signed: Riley Tracy MD at 22:25 EDT , Physical Exam Const alert and no apparent distress HEENT head/scalp atraumatic and moist oral mucous membranes Resp normal respiratory effort, no retractions and no use of accessory muscles Cardio regular rate, regular rhythm, S1 normal heart sound and S2 normal heart sound GI normal to inspection, nondistended, normoactive bowel sounds, soft to palpation, non-tender and non-distended Extremity Extremity Narrative: normal cap refil in right hand. Assessment & Plan Assessment/Plan (1) Non-ST elevation [place] (NSTEMI): PLAN: Plan NSTEMI * cards consult * 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 * Dr. Bonilla recommending aggressive medical management. Continue with atorvastatin, clopidogrel, losartan, isosorbide, metoprolol tartrate * Echo pending. Chronic conditions: * History CVA: Chronic left-sided mild hemiplegia, will continue patient Plavix, adding statin as noted above, continue hypertensive regimen, noted diabetic history but per current list does not appear to be on regimen, evaluating further. * Diabetes mellitus type II: Clarifying but does not appear to be on regimen, hemoglobin A1c 6.1, NPO status for possible cardiac catheterization however will resume ADA diet following, accu checks w/ ISS. * Chronic Kidney Disease Stage II per GFR trending: Admission BUN/Cr 23/1.01, GFR 75, baseline renal function 0.8-1.1, repeat BMP in AM. * Valvular heart disease: Most recent echocardiogram noted 08/06/2023 with mild concentric LVH, LVEF 55%, stage I diastolic dysfunction, mild TBI, mild diffuse aortic valve calcification, mild aortic stenosis. * Hypertension: Continue home regimen including losartan, amlodipine, adding low-dose beta-jessie given presentation as noted, PRN hydralazine. * Hyperlipidemia: Adding statin therapy as noted, FLP in AM. * Hypothyroidism: We will continue patient home levothyroxine regimen. * BPH without obstructive symptoms: Per current list does not appear to be on regimen but clarifying to be cautious. DVT prophylaxis: Not indicated as patient is already anticoagulated Code status DNRCCA, DNI. Disposition: The patient remains stable, plan is for discharge on the fourth. Charges/Coding Procedures Hospitalists Procedures: Other Procedure - See Report (Nonbillable rounding as patient was admitted after midnight.)
--- NOTE | 2024-03-13 10:40 | CL.D_ITS ---
Patient Name: ROSMERY HERRERA Study Date: 03/13/2024 Performing: Saturnino Bonilla MD Ht: 75 inches 190.5 cm : 1940 Wt: 224.5 lbs 101.7 kg Age: 83 Gender: male BSA: 2.3 PROCEDURE(S) PERFORMED DC01-([id number])LHC/COR/LV CLINICAL PROFILE AND INDICATIONS Indications: Worsening Angina Heart Failure: None Stress/Imaging Stress/Image Study Performed: No Angina Classification Anginal Classification w/in 2 Weeks: CCS III CAD Presentations: Non-STEMI. Symptom onset Date/Time: 03/13/24 Time Not Available CONCLUSIONS Moderate diffuse disease CAD involving the left anterior descending artery territory as well as the mid to distal right coronary artery territory. Preserved ejection fraction. RECOMMENDATIONS Aggressive medical therapy. DESCRIPTION OF PROCEDURE The patient arrived to the procedure lab. The risks and benefits of the procedure as well as a full description of our services here and current unavailability of surgical backup were fully explained to the patient and/or their significant other prior to the catheterization. The Timeout was completed, verifying the correct patient and procedure. The patient's procedural site was prepped and draped in the usual fashion. Local anesthetic was given subcutaneously to right radial region with Lidocaine 2%. Using a modified Seldinger technique, arterial access was obtained via the right radial artery, a 6Fr sheath was inserted. Left Coronary Artery selective angiography was performed in multiple views using a 5 Fr. 4.0 [place] catheter, unable to engage. Left Coronary Artery selective angiography was performed in multiple views using a 6 Fr. JL4- 125cm catheter. Right Coronary Artery selective angiography was then performed in multiple views using a 6 Fr. JR 4-125cm catheter. Left Ventriculography was performed in LIU projection using a 6 Fr. Pig[place] catheter. LV to AO pullback pressures were then recorded.The arterial sheath was pulled and a TR Band was applied for hemostasis. 10cc of air CORONARY ANGIOGRAPHY DOMINANCE: Right Dominant LEFT HEART ASSESSMENT Left Ventricular Ejection Fraction: by LV Gram 60 % Normal LV wall motion Normal Left Ventricular systolic function LEFT MAIN: Mild calcification, Angiographically normal LEFT ANTERIOR DESCENDING ARTERY: Mild to moderately calcified vessel with moderate stenosis noted in the midsegment. 3 diagonal branches noted of the left anterior descending artery have moderate proximal disease. No areas of high-grade stenosis present. CIRCUMFLEX ARTERY: Nondominant vessel with moderate diffuse disease with no areas of high-grade stenosis present. RIGHT CORONARY ARTERY: Dominant vessel mildly tortuous mid segment with 50% stenosis, acute marginal branch with moderately severe disease in the bifurcating posterior descending artery posterolateral vessel with 60 to 70% stenosis noted. VALVE FINDINGS: Aortic Valve Stenosis - mild AORTIC ROOT: Dilated COMPLICATIONS No Complications PROCEDURE MEDICATIONS Fentanyl 50 mcg IV Versed 1 mg IV Versed 1 mg IV Oxygen: 2 L/min via nasal cannula Heparin given IA 03/13/2024 09:45:46 Verapamil 2.5mg, Ntg 100mcgs, 3000 units of Heparin given IA 03/13/2024 09:45:46 SUMMARY OF HEMODYNAMIC DATA Time AIR REST ECG 09:31:51 AO 124/81 (100) SA 09:49:33 LV 147/9, 19 10:04:37 LV 151/9, 20 10:04:44 LV 147/10, 22 10:05:41 LVp 154/11, 21 10:05:45 AOp 138/72 (99) 10:05:50 Signed By Saturnino Bonilla MD On 03/13/2024 10:39:45 Saturnino Bonilla MD
[2024-03-13] MEDS: Psyllium 1 PACKET PO (11:13)
[2024-03-13 11:40] LABS: Bedside Glucose 108 mg/dL (74-106)
--- NOTE | 2024-03-13 12:00 | CASEMGMT ---
RN CM Face to Face with patient for initial transition planning/care coordination assessment. RN CM introduced self and role at [facility]. Patient lying in bed, alert and oriented. Patient willing to participate in assessment and is able to answer all questions appropriately. Care providers, pharmacy, and demographics verified. PCP: Ortega Specialists: Richard, plant taxonomist; hTony, urologist; Christiano, ortho; Jah, production cook Preferred Pharmacy: [facility] [place] Insurance: [facility], MMO Prescription Benefit: yes Living Will/HPOA: none, interested, SW notified LNOK: , daughter Living Arrangements: Patient lives with that he provides care for as she has dementia, in a single story home. Family has made arrangements for patient's while he is in the hospital. Patient is independent at home. Transportation: self, neighbor DME/HHC: Patient has shower chair, raised toilet, and grab bars at home. Patient wishes to discharge home, denies need for home health at this time. Patient states he has no further needs or concerns at this time. CM to follow for discharge planning needs that may arise. Disposition Plan: Patient to discharge home with family support and follow-up plans in place. Catrina BENSON, RN, CM
--- NOTE | 2024-03-13 12:01 | CASEMGMT ---
SW was informed that patient is worried about his as he is her primary caregiver. OLIVIA met with patient. Introduced self and role at [facility]. Patient stated his does not get around well. Patient does all of the housekeeping and cleaning. Patient normally checks her INR every Wednesday. Patient has a machine to do this and then the doctor's office lets them know how much Coumadin to take. Patient said someone from their doctor's office is going out later to help patient with checking her INR and taking right amount of medicine. Patient stated their grandson is in [facility] [place] and for some reason his called him. He is now coming to [place] to be with her. SW did provided patient with information on private duty assistance and [employer]. Patient was very thankful for the resources. Susanna PORRAS
--- NOTE | 2024-03-13 14:33 | CHAPLAIN ---
Type of Pastoral Visit _x__ Initial Visit ___ Follow-up Visit ___ On-call Visit ___ General Patient Visit ___ Spiritual Assessment ___ Family Conference ___ Bereavement ___ Rapid Response ___ Code Blue ___ Other (describe below) Pastoral Care Referral From _x__ Patient ___ Family ___ Nurse ___ Physician ___ Telemedicine Physician ___ Economic Specialist ___ Other (describe below) Sacrament/Intervention _x__ Active listening ___ Anointing ___ Voodoo ___ Bereavement ___ Communion ___ Kiara exploration ___ _x__ Life review _x__ Prayer ___ Reconciliation ___ Sacrament of Sick _x__ Supportive presence ___ Wedding ___ Other (describe below) Pastoral Comments patient is welcoming and talkative about his situation, his health, and his 's needs; pt is expressive in talking about how he has been the caregiver for his and now my health has suffered; pt admits needs to make changes and to get more help than he can give; pt children live out of state; pt expresses kiara in God and relies on that for his help; pt asks if this risk compliance manager would lead in the Our Father prayer; pt talks about his past hobby of bike riding which he did until age 79
--- NOTE | 2024-03-13 14:48 | NURSING ---
report given to CATHI Ty as he will resume care for patient at this time
[2024-03-13 17:19] LABS: Bedside Glucose 113 mg/dL (74-106)
[2024-03-13] MEDS: 0.9% Saline Lock 10 ML Syringe IV (21:32)
[2024-03-13] MEDS: Metoprolol Tartrate 25 MG Tablet PO (21:33)
[2024-03-13] MEDS: Atorvastatin Calcium 40 MG Tablet PO (21:33)
[2024-03-13] MEDS: MELATONIN 3 MG TABLET PO (21:33)
[2024-03-13] MEDS: CEVIMELINE HCL 30 MG CAPSULE PO (21:33)
[2024-03-14 00:29] LABS: Bedside Glucose 114 mg/dL (74-106)
[2024-03-14 03:15] VITALS: BP 134/90; PULSE 66; RESP 16; TEMP 36.7; O2SAT 95
[2024-03-14 03:19] VITALS: BMI 27.6
[2024-03-14] MEDS: Psyllium 1 PACKET PO ×2 (06:18→11:31)
[2024-03-14] MEDS: Levothyroxine 88 MCG Tablet PO (06:18)
[2024-03-14 06:57] VITALS: O2SAT 97
[2024-03-14 07:18] LABS: Bedside Glucose 108 mg/dL (74-106)
--- NOTE | 2024-03-14 07:46 | PN.CARD_ITS ---
Subjective Subjective Patient seen and evaluated. Appears to be doing much better at this time. Objective Data Vital Signs: Vital Signs Temp Pulse Resp BP Pulse Ox O2 Del Method 98.1 F 66 16 134/90 H 97 Room Air 03/14/24 03:15 03/14/24 03:15 03/14/24 03:15 03/14/24 03:15 03/14/24 06:57 03/14/24 06:57 Oxygen Delivery Method Room Air Weight: 221 lb 5.506 oz Body Mass Index (BMI) 27.6 Intake & Output: Intake and Output for Last 24 Hours 03/12/24 03/13/24 03/14/24 23:59 23:59 23:59 Intake Total 1193.83 / 1193.83 Output Total 525 / 525 Balance 668.83 / 668.83 Lab / Micro Data 03/13/24 06:45 03/13/24 06:45 Labs: Laboratory Results - last 24 hr 03/13/24 06:45: Sodium 136, Potassium 3.9, Chloride 106, Carbon Dioxide 24.0, Anion Gap 6, BUN 17, Creatinine 0.70, Estim Creat Clear Calc 88.84, Est GFR (MDRD) Af Amer 137, Est GFR (MDRD) Non-Af 113, BUN/Creatinine Ratio 24.1 H, G lucose 121 H, Calcium 8.8, Total Bilirubin 0.50, AST 44 H, ALT 26, Alkaline Phosphatase 92, Total Protein 7.3, Albumin 3.4, Globulin 3.9, Albumin/Globulin Ratio 0.9, Triglycerides 175, Cholesterol 192, LDL Cholesterol 107, VLDL Cholesterol 35, HDL Cholesterol 50 03/13/24 11:13: POC Glucose 108 H 03/13/24 17:01: POC Glucose 113 H 03/13/24 21:28: POC Glucose 114 H 03/14/24 06:24: POC Glucose 108 H Cardiology Labs/Tests 03/13/24 06:45: Sodium 136, Potassium 3.9, Chloride 106, Carbon Dioxide 24.0, Anion Gap 6, BUN 17, Creatinine 0.70, Est GFR (MDRD) Af Amer 137, Est GFR (MDRD) Non-Af 113, BUN/Creatinine Ratio 24.1 H, Glucose 121 H, Calcium 8.8, Total Bilirubin 0.50, Triglycerides 175, Cholesterol 192, LDL Cholesterol 107, VLDL Cholesterol 35, HDL Cholesterol 50 Rhythm: EKG: ECHO: Stress Test: Cardiac Cath: PCI: CT Surgery: Holter monitor: EPS: PPM: CXR: Chest CT Scan: Radiography Diagnostic Testing: Radiology Impression Echocardiogram 03/13/24 01:07 Interpretation Summary Normal LV size. Left ventricular systolic function is normal. Mean aortic valve gradient 24 mmHg. Mild aortic stenosis. The estimated ejection fraction is 60 %. Stage 1 diastolic dysfunction. Mild tricuspid valve insufficiency. Ordering Physician: Xiao Pizano Referring Physician: PRABHU HERNÁNDEZ Performed By: Massiel Urban and Student Physical Exam Const alert, oriented x3 and no apparent distress General Appearance: cooperative HEENT hearing grossly normal bilaterally Head and Scalp: atraumatic Eyes EOMs intact bilaterally Neck General: normal visual inspection Chest inspection of chest normal and palpation of chest normal Resp normal respiratory effort Auscultation: clear to auscultation bilaterally Cardio regular rate, regular rhythm, S1 normal heart sound and S2 normal heart sound Jugular Venous Distention: JVD GI normal to inspection, nondistended, normoactive bowel sounds Extremity normal capillary refill and no pedal edema Peripheral Pulses: Yes pulses 2+ throughout and femoral pulses present Skin no rashes or lesions noted Neuro oriented x3 and CN's II-XII intact bilaterally Psych Appearance: grossly normal and appropriate Assessment & Plan Assessment/Plan (1) Non-ST elevation DE (NSTEMI): PLAN: He does present with a non-ST elevation myocardial infarction. He underwent a cardiac catheterization which demonstrated the following: Normal left main coronary artery. Left anterior descending artery with moderate diffuse disease involving the first second and third diagonal branches but with no areas of high-grade stenosis. There is moderate calcification noted in the mid left anterior descending artery. Left circumflex artery which is nondominant with mild diffuse disease. Dominant large right coronary artery with moderate diffuse disease involving the midsegment and the bifurcation of the posterior descending artery and the posterolateral vessel. The left ventricular ejection fraction is noted to be normal My recommendation at this stage will be to maximize medical therapy. Will recommend the addition of beta-jessie and high intensity statin. Nitrates can be used on a short-term basis. (2) Nonrheumatic aortic (valve) stenosis: PLAN: He does have evidence of mild aortic stenosis with a dilated aortic root Repeat echocardiogram demonstrated preserved ejection fraction and mild aortic stenosis. Medical therapy will be recommended at this time (3) Essential hypertension: PLAN: His blood pressure appears to be under fair control and the plan be to continue the current medical therapy (4) Hyperlipidemia: QUALIFIERS: Hyperlipidemia type: unspecified Qualified Code(s): E 78.5 - Hyperlipidemia, unspecified PLAN: Will recommend the addition of high intensity statin. I would recommend outpatient follow-up. With Dr. Ramos.
[2024-03-14 08:35] VITALS: PULSE 73
[2024-03-14] MEDS: amLODIPine 5 MG Tablet PO (08:35)
[2024-03-14] MEDS: Clopidogrel Bisulfate 75 MG Tablet PO (08:35)
[2024-03-14] MEDS: Losartan Potassium 50 MG Tablet PO (08:35)
[2024-03-14] MEDS: Metoprolol Tartrate 25 MG Tablet PO (08:35)
[2024-03-14] MEDS: Isosorbide Mononitrate 30 MG Tablet PO (08:35)
[2024-03-14] MEDS: Aspirin E.C. 81 MG Tablet PO (08:35)
[2024-03-14] MEDS: CEVIMELINE HCL 30 MG CAPSULE PO (08:36)
[2024-03-14] MEDS: Pantoprazole Sodium 20 MG Tablet PO (08:36)
[2024-03-14 10:28] VITALS: BP 92/52; PULSE 79; RESP 18; TEMP 36.5; O2SAT 92
--- NOTE | 2024-03-14 10:29 | DS.PCM_ITS ---
Providers Date of Admission: 03/13/24 Primary Care Physician: Prabhu Hernández, BURNING SUPERVISOR-C Consultations 03/13/24 01:07 Consult: Cardiology Routine Consulting Provider: Kierra Medina Reason for Consult: Chest Pain, NSTEMI EMERGENT Consult: No MD Notified: Yes Date Notified: 03/13/24 Time Notified: 00:04 Method of Notification: ED Physician Initiated Reason For Visit: NSTEMI,CHEST PAIN Diagnosis Discharge Diagnosis (1) Non-ST elevation PA (NSTEMI): Status: Acute Code(s): I21.4 - Non-ST elevation (NSTEMI) myocardial infarction (2) Nonrheumatic aortic (valve) stenosis: Status: Acute Code(s): I35.0 - Nonrheumatic aortic (valve) stenosis (3) Essential hypertension: Status: Chronic Code(s): I10 - Essential (primary) hypertension (4) Hyperlipidemia: Status: Chronic Code(s): E78.5 - Hyperlipidemia, unspecified Qualifiers: Hyperlipidemia type: unspecified Qualified Code(s): E78.5 - Hyperlipidemia, unspecified Plan NSTEMI * 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 * Dr. Bonilla recommending aggressive medical management. Continue with atorvastatin, clopidogrel, losartan, isosorbide, metoprolol tartrate * Echo pending. Chronic conditions: * History CVA: Chronic left-sided mild hemiplegia, will continue patient Plavix, adding statin as noted above, continue hypertensive regimen, noted diabetic history but per current list does not appear to be on regimen, evaluating further. * Diabetes mellitus type II: Clarifying but does not appear to be on regimen, hemoglobin A1c 6.1, NPO status for possible cardiac catheterization however will resume ADA diet following, accu checks w/ ISS. * Chronic Kidney Disease Stage II per GFR trending: Admission BUN/Cr 23/1.01, GFR 75, baseline renal function 0.8-1.1, repeat BMP in AM. * Valvular heart disease: Most recent echocardiogram noted 08/06/2023 with mild concentric LVH, LVEF 55%, stage I diastolic dysfunction, mild TBI, mild diffuse aortic valve calcification, mild aortic stenosis. * Hypertension: Continue home regimen including losartan, amlodipine, adding low-dose beta-timmy given presentation as noted, PRN hydralazine. * Hyperlipidemia: Adding statin therapy as noted, FLP in AM. * Hypothyroidism: We will continue patient home levothyroxine regimen. * BPH without obstructive symptoms: Per current list does not appear to be on regimen but clarifying to be cautious. DVT prophylaxis: Not indicated as patient is already anticoagulated Code status DNRCCA, DNI. Disposition: DC home. CM provided patient list of home health agency to help with his , who is the primary intensive care nurse. Medications at Discharge Home Medications clopidogrel 75 mg tablet 75 mg PO DAILY 08/27/15 levothyroxine 88 mcg tablet 88 mcg PO DAILY 08/27/15 cholecalciferol (vitamin D3) 50 mcg (2,000 unit) tablet 50 mcg PO DAILY 05/15/20 cevimeline 30 mg capsule 30 mg PO BID EYE 05/19/21 cyanocobalamin (vitamin B-12) 2,500 mcg tablet 2,500 mcg PO MOWEFR 05/19/21 glucosamine sulfate 1,000 mg tablet 1,000 mg PO DAILY 05/19/21 losartan 50 mg tablet 50 mg PO DAILY 05/25/22 psyllium husk 3.4 gram/5.4 gram oral powder (Metamucil) 1 tbsp PO BID constipation 03/13/24 aspirin 81 mg tablet,delayed release 81 mg PO BREAKFAST #0 tabs 03/14/24 atorvastatin 40 mg tablet 40 mg PO QHS #30 tabs 03/14/24 isosorbide mononitrate 30 mg tablet,extended release 24 hr 30 mg PO DAILY #30 tabs 03/14/24 metoprolol tartrate 25 mg tablet 25 mg PO BID #60 tabs 03/14/24 Hospital Course Operations None Procedures 2-D Echocardiogram and Cardiac catheterization Summary of Care Provided Minutes Spent on Discharge: 32 Hospital Course: Patient presents with NSTEMI. Cardiac cath showed non-obstructive CAD. Cardiology recommended optimizing medical mgmt. Patient to follow up with Dr. Ramos as outpt. Weight / BMI Weight Weight: 100.4 kg Body Mass Index (BMI) 27.6 ABG / Lab / Microbiology Data 03/13/24 06:45 03/13/24 06:45 Laboratory: Laboratory Results - last 24 hr 03/13/24 11:13: POC Glucose 108 H 03/13/24 17:01: POC Glucose 113 H 03/13/24 21:28: POC Glucose 114 H 03/14/24 06:24: POC Glucose 108 H Radiography Diagnostic Testing: Radiology Impression Echocardiogram 03/13/24 01:07 Interpretation Summary Normal LV size. Left ventricular systolic function is normal. Mean aortic valve gradient 24 mmHg. Mild aortic stenosis. The estimated ejection fraction is 60 %. Stage 1 diastolic dysfunction. Mild tricuspid valve insufficiency. Ordering Physician: Xiao Pizano Referring Physician: PRABHU HERNÁNDEZ Performed By: Massiel Urban and Student D/C Instructions Discharge Diet: Low fat / Low cholesterol Meaningful Use Info Meaningful Use Meaningful Use Diagnoses (Choose all that apply): AMI AMI/Post PCI/Angioplasty Aspirin given w/in 24hrs of arrival?: Yes ASA at discharge?: Yes Antiplatelet Therapy at Discharge:: Yes Statins at discharge?: Yes [place]/ARB at discharge?: Yes Beta Timmy at discharge?: Yes Done w/ Acute PA measure.: Yes Documented LVEF (%): 60 Ischemic Stroke Statin Dosing Therapy Reference: STATIN DOSE THERAPY REFERENCE: * Patients > 75 years receive moderate or high dose statin therapy. * Patients 75 years or YOUNGER should receive HIGH intensity statin dose unless contraindicated. You will be required to document reason for non-treatment if statin daily dose does not meet guidelines. HIGH DOSE STATIN THERAPY DAILY Atorvastatin > than or = to 40 mg Rosuvastatin > than or = to 20 mg Amlodipine + Atorvastatin > than or = to 2.5/40 mg Ezetimibe + Simvastatin 10/80 mg Simvastatin 80mg Discharge Plan Admission Admit Date/Time: 03/13/24 00:03 Primary Reason for Your Visit: NSTEMI Attending Provider: Catracho Ahuja Primary Care Provider: Prabhu Hernández Consulting Providers: Kierra Medina; Xiao Pizano Discharge Orders/Prescriptions Prescriptions: New atorvastatin 40 mg Tablet 40 mg PO QHS Qty: 30 0RF isosorbide mononitrate 30 mg Tablet Extended Release 24 Hr 30 mg PO DAILY Qty: 30 0RF aspirin 81 mg Tablet,Delayed Release (Dr/Ec) 81 mg PO BREAKFAST Qty: 0 0RF metoprolol tartrate 25 mg Tablet 25 mg PO BID Qty: 60 0RF Continued cholecalciferol (vitamin D3) 50 mcg (2,000 unit) tablet 50 mcg PO DAILY cyanocobalamin (vitamin B-12) 2,500 mcg tablet 2,500 mcg PO MOWEFR glucosamine sulfate 1,000 mg tablet 1,000 mg PO DAILY Rx Instructions: administer with meals losartan 50 mg tablet 50 mg PO DAILY clopidogrel 75 MG tablet 75 mg PO DAILY levothyroxine 88 MCG tablet 88 mcg PO DAILY cevimeline 30 mg capsule 30 mg PO BID Metamucil 3.4 gram/5.4 gram powder 1 tbsp PO BID Rx Instructions: mix into at least 8 oz of water or juice before administering Discontinued amlodipine 5 mg tablet 5 mg PO DAILY Referrals / Follow Up: Juan Carlos Ramos MD [Med Staff - Active Staff] - Within 1 Month Prabhu Hernández NP-C [Primary Care Provider] - Within 2 Weeks Disposition Disposition (needs filled in before D/C Order can be placed): Home, Self Care Charges/Coding Visit Charges Inpatient E&M: 92244 Disch Hosp >30min
--- NOTE | 2024-03-14 10:53 | CASEMGMT ---
OLIVIA checked in with patient to see if he would like to complete healthcare Power of Financial Associate papers. Patient does want to do documents, but he does not have addresses and he would like to talk with the individual he would name his POA first. Patient does have the social work rac card to call and schedule appt to do documents. Susanna Mei PODIATRY ASSISTANTDavid PORRAS
[2024-03-14 12:11] LABS: Bedside Glucose 129 mg/dL (74-106)
--- NOTE | 2024-03-14 13:40 | PHA.DC.MC.R ---
Pharmacy [facility] Pharmacy Service has performed discharge medication reconciliation and counseling for this patient. 1. ASPIRIN 81MG PO BREAKFAST 2. ATORVASTATIN 40MG PO QHS 3. ISOSORBIDE MONONITRATE 30MG PO DAILY 4. METOPROLOL TARTRATE 25MG PO BID The patient's discharge medication list was reviewed for discrepancies and discrepancies were resolved. The patient was counseled on the following discharge medications and changes in medications for homegoing were reviewed. The Reason for Use, instructions for use, and potential side effects were reviewed for all new medications. The patient's questions regarding all of their medications were answered. The patient was able to verbally demonstrate an understanding of their discharge medications. Patient counseled by pharmacy technician per diemSiobhan. Medications at Discharge Home Medications clopidogrel 75 mg tablet 75 mg PO DAILY 08/27/15 levothyroxine 88 mcg tablet 88 mcg PO DAILY 08/27/15 cholecalciferol (vitamin D3) 50 mcg (2,000 unit) tablet 50 mcg PO DAILY 05/15/20 cevimeline 30 mg capsule 30 mg PO BID EYE 05/19/21 cyanocobalamin (vitamin B-12) 2,500 mcg tablet 2,500 mcg PO MOWEFR 05/19/21 glucosamine sulfate 1,000 mg tablet 1,000 mg PO DAILY 05/19/21 losartan 50 mg tablet 50 mg PO DAILY 05/25/22 psyllium husk 3.4 gram/5.4 gram oral powder (Metamucil) 1 tbsp PO BID constipation 03/13/24 aspirin 81 mg tablet,delayed release 81 mg PO BREAKFAST #0 tabs 03/14/24 atorvastatin 40 mg tablet 40 mg PO QHS #30 tabs 03/14/24 isosorbide mononitrate 30 mg tablet,extended release 24 hr 30 mg PO DAILY #30 tabs 03/14/24 metoprolol tartrate 25 mg tablet 25 mg PO BID #60 tabs 03/14/24
== END 2024-03-14 12:34 | disposition home or self-care (01) | DRG 281 ==
LOC: ED 03-13 00:10 → PCU 03-13 00:17
PROVIDERS: Nurse Practitioner; Admitting Provider Family Medicine; Emergency Provider Emergency Medicine; PCP Nurse Practitioner Family
DX: I21.4 Non-ST elevation (NSTEMI) myocardial infarction (principal); I69.354 Hemiplegia and hemiparesis following cerebral infarction affecting left non-dominant side; E11.22 Type 2 diabetes mellitus with diabetic chronic kidney disease; I25.110 Atherosclerotic heart disease of native coronary artery with unstable angina pectoris; E03.9 Hypothyroidism, unspecified; I12.9 Hypertensive chronic kidney disease with stage 1 through stage 4 chronic kidney disease, or unspecified chronic kidney disease; I35.0 Nonrheumatic aortic (valve) stenosis; N18.2 Chronic kidney disease, stage 2 (mild); E78.5 Hyperlipidemia, unspecified; Z66 Do not resuscitate; Z63.6 Dependent relative needing care at home; Z79.02 Long term (current) use of antithrombotics/antiplatelets; Z79.899 Other long term (current) drug therapy; Z82.49 Family history of ischemic heart disease and other diseases of the circulatory system
CPT/HCPCS: 36415; 71045; 80053; 80061; 82962; 83036; 83690; 83735; 84484; 85025; 85610; 85730; 93005; 93306; 93458; 94668; 99152; 99153; 99285; J7030; J7040; Q9967; A4216; C1769; C1894

== ENCOUNTER → 2024-03-27 | Outpatient (CLI) | payer MEDICARE, OTHER, SELFPAY ==
[2024-03-27 12:21] LABS: ALB/GLOB Ratio 0.8 RATIO (0.9-2.4); AST(SGOT) 23 U/L (15-37); Alanine Aminotransfer ALT/SGPT 31 U/L (16-61); Albumin, Serum 3.8 g/dL (3.2-5.0); Alkaline Phosphatase 108 U/L (45-117); Anion Gap 9 (5-15); BUN 13 mg/dL (7-18); BUN/Creat Ratio 14.1 RATIO (10-20); Calcium,Total 9.5 mg/dL (8.5-10.1); Chloride 104 mmol/L (98-107); Cholesterol 104 mg/dL (200); Creatinine, Serum 0.92 mg/dL (0.70-1.30); EST Glomerular Filtration Rate 83 mL/min (>60); Est Glom Filt Rate - Afr Amer 101 mL/min (>60); Globulin 4.5 g/dL (2.2-4.2); Glucose 116 mg/dL (74-106); High Density Lipoprotein 41 mg/dL; Protein, Total 8.3 g/dL (6.4-8.2); Sodium Level 138 mmol/L (136-145); Thyroid Stim Hormone (TSH) 1.87 uIU/mL (0.358-3.74); Triglycerides 137 mg/dL; Very Low Density Lipoprotein 27 mg/dL (5-40)
== END | disposition home or self-care (01) ==
PROVIDERS: PCP Nurse Practitioner Family; Referring Provider Internal Medicine Cardiovascular Disease; Visit Provider Internal Medicine Cardiovascular Disease
DX: E78.00 Pure hypercholesterolemia, unspecified (principal); E07.9 Disorder of thyroid, unspecified
CPT/HCPCS: 36415; 80053; 80061; 82248; 84443

== ENCOUNTER → 2024-08-17 | Outpatient (CLI) | payer MEDICARE, OTHER, SELFPAY ==
[2024-08-17 10:05] LABS: Color, Urine Yellow (Yellow); Glucose, Dipstick 100 mg/dl (Normal); Ketone-Dipstick Negative (Negative); Leukocyte Esterase-Dipstick Negative /ul (Negative); Nitrite-Dipstick Negative (Negative); Occult Blood-Urine Negative /ul (Negative); Protein-Dipstick Negative (Negative); Specific Gravity, Urine 1.025 (1.002-1.030); Urine Bilirubin Dipstick Negative (Negative); Urine Clarity Clear (Clear); Urine Urobilinogen Normal (Normal)
[2024-08-17 10:06] LABS: Absolute Lymphocyte Count 4.67 X10^3/uL (0.83-4.51); Absolute Neutrophil Count 3.1 X10^3/uL (2.0-7.7); Basophil# 0.04 X10^3/uL; Basophil% 0.4 % (0-1); Eosinophils% 2.2 % (0-5); Hematocrit 49.2 % (40-54); Hemoglobin 15.9 g/dL (13.0-16.5); Lymphocyte # 4.67 X10^3/ul (0.83-4.51); Lymphocyte % 52.2 % (19-41); Mean Corp Hgb Conc 32.3 g/dL (32-36); Mean Corpuscular Hgb 27.7 pg (27.0-32.0); Mean Corpuscular Volume 85.7 fL (80-94); Mean Platelet Vol. 9.4 fl (6.2-12.0); Monocyte# 0.92 X10^3/uL; Monocyte% 10.3 % (0-10); NRBC Flagged by Analyzer 0 % (0-5); Neutrophil % 34.7 % (47-70); Platelet Count 251 K/mm3 (150-450); RBC Distribution Width SD 43.6 fl (35.1-43.9); Red Blood Count 5.74 M/mm3 (4.6-6.2)
[2024-08-17 10:28] LABS: Vitamin B12 753 pg/mL (211-911)
[2024-08-17 10:29] LABS: Microalbumin,Random Urine 12.9 mg/L (NO RANGE EST.); Microalbumin:Creatinine Ratio 8.7 mg/g CRE (<30 mg/g CRE)
[2024-08-17 10:40] LABS: ALB/GLOB Ratio 0.9 RATIO (0.9-2.4); AST(SGOT) 22 U/L (15-37); Alanine Aminotransfer ALT/SGPT 38 U/L (16-61); Albumin, Serum 3.8 g/dL (3.2-5.0); Alkaline Phosphatase 115 U/L (45-117); Anion Gap 5 (5-15); BUN 13 mg/dL (7-18); BUN/Creat Ratio 13.8 RATIO (10-20); Calcium,Total 9.2 mg/dL (8.5-10.1); Chloride 107 mmol/L (98-107); Cholesterol 108 mg/dL (200); Creatinine, Serum 0.94 mg/dL (0.70-1.30); EST Glomerular Filtration Rate 81 mL/min (>60); Est Glom Filt Rate - Afr Amer 98 mL/min (>60); Globulin 4.3 g/dL (2.2-4.2); Glucose 115 mg/dL (74-106); High Density Lipoprotein 48 mg/dL; PSA,Total- Diagnostic 7.61 ng/mL (0.0-4.0); Potassium 3.9 mmol/L (3.5-5.1); Protein, Total 8.1 g/dL (6.4-8.2); Sodium Level 140 mmol/L (136-145); Triglycerides 147 mg/dL; Very Low Density Lipoprotein 29 mg/dL (5-40)
== END | disposition home or self-care (01) ==
PROVIDERS: PCP Nurse Practitioner Family; Referring Provider Urology; Visit Provider Urology
DX: E78.00 Pure hypercholesterolemia, unspecified (principal); C61 Malignant neoplasm of prostate; E11.42 Type 2 diabetes mellitus with diabetic polyneuropathy; E55.9 Vitamin D deficiency, unspecified; I10 Essential (primary) hypertension; E07.9 Disorder of thyroid, unspecified
CPT/HCPCS: 36415; 80053; 80061; 81002; 82043; 82306; 82570; 82607; 82746; 84153; 84443; 85025

== ENCOUNTER 2025-01-08 12:04 | Emergency (ER) | payer MEDICARE, OTHER, SELFPAY ==
[2025-01-08 12:07] VITALS: BP 141/88; PULSE 63; RESP 18; TEMP 36.5; O2SAT 92; BMI 29.4
--- NOTE | 2025-01-08 12:12 | EKG12_ITS ---
Test Reason : N/V Blood Pressure : */* mmHG Vent. Rate : 67 BPM Atrial Rate : 67 BPM P-R Int : 214 ms QRS Dur : 92 ms QT Int : 472 ms P-R-T Axes : 44 48 25 degrees QTcB Int : 498 ms Sinus rhythm with 1st degree A-V block Prolonged QT Abnormal ECG Confirmed by CRUZ JOHNSON, VANESSA ([id number]), associate entertainment editor CHRIS OROZCO ([id number]) on 01/09/2025 8:37:44 AM Referred By: Oliver Sharma Confirmed By: VANESSA ARROYO MD
--- NOTE | 2025-01-08 12:15 | CT_ITS ---
PROCEDURE: BRAIN/HEAD WITHOUT CONTRAST 01/08/2025 REASON FOR EXAM: HEADACHE, N/V TECHNIQUE: Head CT without intravenous contrast. Coronal and Sagittal reconstruction series were provided. One or more dose reduction techniques were used (e.g., Automated exposure control, adjustment of the mA and/or kV according to patient size, use of iterative reconstruction technique. RADIATION DOSE SUMMARY: CTDlvol: 44.99 mGy DLP: 846.73 mGycm COMPARISON: None. FINDINGS: Brain: No mass, mass effect or midline shift. [id number] periventricular low-attenuation in also in the deep white matter suggesting chronic microangiopathy. CSF Spaces: Ventricles and sulci are prominent consistent with age related involution. Sinuses/Mastoids: Predominantly clear. 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 No acute process detected. Reading [facility]
--- NOTE | 2025-01-08 12:16 | EDS_ITS ---
HPI History of Present Illness Chief Complaint: Nausea/Vomiting/Diarrhea Informant: patient and EMS Narrative Narrative: 84-year-old male presents with nausea with 4 episodes of vomiting that all started 4-5 hours ago, this morning after waking up. Subjective fever, but not febrile here. He states when he vomited it was yellow so he assumes that this was all due to eggs. He denies any diarrhea or abdominal pain or chest pain. He denies any cough or dyspnea. He states he checks his blood pressure every morning and sometimes more than that, this morning it was 166 systolic it usually is in the 140s/80s. He states he had a near syncopal episode during all of these episodes of vomiting which is why he called 911. EMS states that his blood sugar was 132 and his vital signs were stable. On ROS, the patient admits to having a headache for the past 4 days that is severe and unusual for him, the worst he has had. He did not admit to this prior to being asked. He denies having other symptoms on ROS. [facility] Medical History Valvular heart disease Essential hypertension Nonrheumatic aortic (valve) insufficiency Hyperlipidemia Atherosclerotic heart disease of [place] coronary artery without angina pectoris Hypothyroidism Type II diabetes mellitus, uncontrolled History of stroke Polyneuropathy Non-ST elevation [place] (NSTEMI) Nonrheumatic aortic (valve) stenosis Fatigue GERD (gastroesophageal reflux disease) Sjogrens syndrome CVA (cerebral vascular accident) ischemic stroke BPH without obstruction/lower urinary tract symptoms Dizziness and giddiness Chronic obstructive pulmonary disease with acute exacerbation Home Medications ?Medication ?Instructions ?Recorded ?Last Taken ?Type clopidogrel 75 mg tablet 75 mg PO DAILY 08/27/15 Unkn own History levothyroxine 88 mcg tablet 88 mcg PO DAILY 08/27/15 U nknown History cholecalciferol (vitamin D3) 50 50 mcg PO DAILY Unknown History mcg (2,000 unit) tablet cevimeline 30 mg capsule 30 mg PO BID EYE 05/19/21 Un known History cyanocobalamin (vitamin B-12) 2,500 mcg PO MOWEFR 07/01 Unknown History 2,500 mcg tablet glucosamine sulfate 1,000 mg tablet 1,000 mg PO DAILY 05/19/21 Unknown History aspirin 81 mg tablet,delayed 81 mg PO BREAKFAST #0 tab s 03/14/24 Unknown Rx release atorvastatin 40 mg tablet 40 mg PO QHS #90 tabs Unknown Rx psyllium husk 3.4 gram/5.4 gram 2 tbsp PO BID constipa tion 09/21/24 Unknown History oral powder (Metamucil) losartan 50 mg tablet 50 mg PO BID #90 tabs Unknown Rx ondansetron 8 mg disintegrating 8 mg PO Q8H PRN nausea and 01/08/25 Unknown Rx tablet vomiting #12 tabs Allergy/AdvReac Type Severity Reaction Status Date / Time clindamycin Allergy Severe Swelling Verified 09/21/24 13:29 codeine Allergy Severe HALLUCINATI Verified 09/21/24 13:29 ONS acetaminophen (From Percocet) AdvReac Severe Vomiting,Na Verified 09/21/24 13:29 usea oxycodone (From Percocet) AdvReac Severe Vomiting,Na Verified 09/21/24 13:29 usea indomethacin AdvReac Vomiting Verified 09/21/24 13:29 Family History Father Myocardial infarction Mother CAD (coronary artery disease) Brother CHF (congestive heart failure) Sister CAD (coronary artery disease) Other Diabetes Heart disease Hypertension Thyroid disorder Surgical History History of knee surgery History of cataract surgery History of tonsillectomy Social History household members: spouse Smoking Status: Never smoker second hand exposure: No alcohol intake: former details: stopped drinking 1988 substance use type: does not use what type of physical activity do you participate in: bicycling and weight training frequency: 5-6 times per week madalyn/cheondoism: Church seatbelt use: always ROS ROS ED Constitutional Constitutional ED: Denies chills or fever(s) Eyes Eyes: Denies change in vision or diplopia ENT ENT ED: Denies rhinorrhea or sore throat Cardiovascular Cardiovascular: Reports as per HPI and lightheadedness; Denies chest pain, palpitations, racing heartbeat or syncope Respiratory/Chest Respiratory/Chest: Denies cough or dyspnea Gastrointestinal Gastrointestinal: Reports nausea and vomiting; Denies abdominal pain or diarrhea Genitourinary Genitourinary ED: Denies dysuria or hematuria Musculoskeletal Musculoskeletal: Denies back pain or neck pain Integumentary Denies abscess or rash Neurologic Neurologic: Reports headache(s); Denies paresthesias or weakness EXAM Physical Exam Const Vital Signs: 01/08/25 12:07 01/08/25 12:12 01/08/25 12:42 Temperature 97.7 F L Temperature Source Oral Pulse Rate 63 Respiratory Rate 18 Blood Pressure 141/88 H Blood Pressure Mean 105 Pulse Ox 92 84 Oxygen Delivery Method Room Air Room Air Room Air Oxygen Flow Rate (L/min) 01/08/25 12:42 01/08/25 14:05 Temperature Temperature Source Pulse Rate 71 Respiratory Rate 16 Blood Pressure 130/80 H Blood Pressure Mean 96 Pulse Ox 94 98 Oxygen Delivery Method Nasal Cannula Nasal Cannula Oxygen Flow Rate (L/min) 2 2 Positive well nourished and well developed General Appearance ED: well developed and NAD HEENT Reports moist mucous membranes normocephalic and atraumatic Eyes PERRL and EOMs intact bilaterally Neck full ROM, supple and no JVD Resp normal respiratory effort and clear to auscultation bilaterally Cardio regular rate and regular rhythm Heart Sounds: murmur systolic II/ crescendo-decrescendo right sternal border Peripheral Pulses: pulses 2+ throughout GI non-tender and non-distended Auscultation: normoactive bowel sounds Palpation: soft Back/Spine no CVA tenderness General Back: other FROM Extremity normal to inspection General Extremety ED: Negative for edema, pulses abnormal or tenderness General Extremity: Negative for edema or pulses abnormal Neuro oriented x3, CN's II-XII intact bilaterally and no sensory deficits noted Sensorium / Orientation: awake and alert Motor Exam: strength 5/5 throughout Psych Psych Narrative: Flat affect Skin no rashes or lesions noted and no wounds MDM MDM MDM Narrative Medical decision making narrative: I reviewed the patient's prehospital EKG, it is unremarkable in sinus. He appears to be having some occasional PACs on the monitor patient states he has a history of this and they are asymptomatic. His prior echo shows a history of mild aortic stenosis, his systolic murmur currently is consistent with that. His heart rates a little on the slow side in the 60 range, he is on no AV sandro blockers and there are no signs of any AV block beyond first-degree on his EKG. head CT given his headaches and elevated blood pressure episode negative for hemorrhage I agree with the report I reviewed the images. His workup shows 2 sequential troponin measurements that are normal in context of this, and given all of this and his normal labs I suspect his near syncopal episode was more likely vasovagal related to vomiting/Valsalva. After Zofran and IV fluids, he is feeling better tolerating saltine crackers and fluids orally without any difficulty. His repeat blood pressure is 130/80. Patient reassured, he is comfortable going home, suspect gastritis not able to rule out foodborne illness but I suspect more likely to be viral in etiology. He is okay going home with a prescription for Zofran to use as needed and stay hydrated. Of note about being observed, he had some transient mild hypoxemia, nursing put him on a 2 L nasal cannula but this was just while he was sleeping, now while he is awake. More likely due to sleep apnea. Advised to follow-up. History & Record Review Additional record(s) reviewed:: Prior labs (Echocardiogram 03/13/2024) Lab Data Attestation: I reviewed the patient's lab results. Labs: Laboratory Results - last 24 hr 01/08/25 01/08/25 12:13 14:20 WBC 8.8 RBC 5.51 Hgb 15.4 Hct 45.7 MCV 82.9 MCH 27.9 MCHC 33.7 RDW Std Deviation 40.4 RDW Coeff of Kam 13.3 Plt Count 194 MPV 9.4 Immature Gran % (Auto) 0.200 Neut % (Auto) 46.8 L Lymph % (Auto) 42.6 H [place] % (Auto) 8.9 Eos % (Auto) 1.0 Baso % (Auto) 0.5 Absolute Neuts (auto) 4.1 Absolute Lymphs (auto) 3.74 Nucleated RBC % 0 Sodium 136 Potassium 3.7 Chloride 102 Carbon Dioxide 20.1 L Anion Gap 14 BUN 13 Creatinine 0.79 Estim Creat Clear Calc 89.16 Est GFR (MDRD) Non-Af 87 BUN/Creatinine Ratio 16.7 Glucose 151 H Calcium 9.5 Troponin T High Sens 16 Troponin T Hi Sens 2 Hr 16 Radiography Diagnostic Testing: Clinical Impression(s) from Imaging Studies Brain CT 01/08/25 12:15 IMPRESSION: 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 No acute process detected. Reading [facility] Chest X-Ray 01/08/25 12:45 IMPRESSION: No acute process detected. Reading Location[facility] Rhythm Strip Rhythm Strip: Sinus Rhythm Rate: 60 Ectopy: PAC(s) EKG Initial EKG: Attestation: I personally reviewed and interpreted this EKG as follows: Interpretation: Sinus Rhythm, No Acute Injury Pattern and AV Block (1st deg) Comments: Nml axis & intervals; nml EKG except first deg AVB Prior EKG tracings: available for review Prior: Unchanged Discharge Plan Triage Chief Complaint: Nausea/Vomiting/Diarrhea ED Provider: Oliver Sharma Dx/Rx/DC Orders Clinical Impression: Acute gastritis without bleeding, Vasovagal near-syncope, Episode of hypertension Instructions: ED Gastritis (Adult) Prescriptions: New ondansetron 8 mg tablet,disintegrating 8 mg PO Q8H PRN (Reason: nausea and vomiting) Qty: 12 0RF No Action cholecalciferol (vitamin D3) 50 mcg (2,000 unit) tablet 50 mcg PO DAILY cyanocobalamin (vitamin B-12) 2,500 mcg tablet 2,500 mcg PO MOWEFR glucosamine sulfate 1,000 mg tablet 1,000 mg PO DAILY Rx Instructions: administer with meals atorvastatin 40 mg tablet 40 mg PO QHS Qty: 90 3RF clopidogrel 75 MG tablet 75 mg PO DAILY levothyroxine 88 MCG tablet 88 mcg PO DAILY cevimeline 30 mg capsule 30 mg PO BID aspirin 81 mg Tablet,Delayed Release (Dr/Ec) 81 mg PO BREAKFAST Qty: 0 0RF Metamucil 3.4 gram/5.4 gram powder 2 tbsp PO BID Rx Instructions: mix into at least 8 oz of water or juice before administering losartan 50 mg tablet 50 mg PO BID Qty: 90 3RF Primary Care Provider: Allyssa Vivas Referrals: Allyssa Vivas, [id number] [Primary Care Provider] - 3-5 Days if not improving Print Language: Malagasy Disposition Disposition: Home, Self Care
[2025-01-08] MEDS: 0.9% Normal Saline (500mL Bag) 500 ML 999 ML IV (12:28)
[2025-01-08] MEDS: Ondansetron 4 MG/2 ML Vial IV (12:28)
[2025-01-08 12:31] LABS: Absolute Lymphocyte Count 3.74 X10^3/uL (0.83-4.51); Absolute Neutrophil Count 4.1 X10^3/uL (2.0-7.7); Basophil# 0.04 X10^3/uL; Basophil% 0.5 % (0-1); Eosinophil# 0.09 X10^3/uL; Hematocrit 45.7 % (40-54); Hemoglobin 15.4 g/dL (13.0-16.5); Lymphocyte # 3.74 X10^3/ul (0.83-4.51); Lymphocyte % 42.6 % (19-41); Mean Corp Hgb Conc 33.7 g/dL (32-36); Mean Corpuscular Hgb 27.9 pg (27.0-32.0); Mean Corpuscular Volume 82.9 fL (80-94); Mean Platelet Vol. 9.4 fl (6.2-12.0); Monocyte# 0.78 X10^3/uL; Monocyte% 8.9 % (0-10); NRBC Flagged by Analyzer 0 % (0-5); Neutrophil # 4.11 X10^3/uL (2.7-7.7); Neutrophil % 46.8 % (47-70); Platelet Count 194 K/mm3 (150-450); RBC Distribution Width CV 13.3 % (11.6-14.6); RBC Distribution Width SD 40.4 fl (35.1-43.9); Red Blood Count 5.51 M/mm3 (4.6-6.2); White Blood Count 8.8 K/mm3 (4.4-11.0)
[2025-01-08 12:42] VITALS: O2SAT 84; O2SAT 94
--- NOTE | 2025-01-08 12:45 | RAD_ITS ---
PROCEDURE: CHEST 1 VIEW (PORTABLE) 01/08/2025 REASON FOR EXAM: CHEST PAIN TECHNIQUE: Frontal view of the chest. COMPARISON: AP chest 03/12/2024 FINDINGS: Hardware: Heart: Heart size is normal Lungs: Lungs are clear. Bones: Unremarkable. Other: Chronic elevation of left hemidiaphragm RAD/Chest 1 View (Portable) IMPRESSION: No acute process detected. Reading [facility]
[2025-01-08 13:06] LABS: Anion Gap 14 (5-15); BUN 13 mg/dL (4-19); BUN/Creat Ratio 16.7 RATIO (10-20); Calcium,Total 9.5 mg/dL (7.6-11.0); Carbon Dioxide 20.1 mmol/L (21.0-32.0); Chloride 102 mmol/L (98-108); Creatinine, Serum 0.79 mg/dL (0.70-1.20); EST Glomerular Filtration Rate 87 (>60); Estimated Creatinine Clearance 89.16 ml/min (50-250); Glucose 151 mg/dL (70-99); Potassium 3.7 mmol/L (3.3-5.1); Sodium Level 136 mmol/L (133-145); Troponin T High Sensitivity 16 ng/L (<=22)
[2025-01-08 14:05] VITALS: BP 130/80; PULSE 71; RESP 16; O2SAT 98
[2025-01-08 14:50] LABS: Troponin T High Sens 2 HR 16 ng/L (<=22)
[2025-01-08 15:29] VITALS: BP 158/98; PULSE 72; RESP 19; TEMP 36.8; O2SAT 98
[2025-01-08] MEDS: Acetaminophen 500 MG Tablet 1000 MG PO (15:32)
== END 2025-01-08 15:47 | disposition home or self-care (01) ==
PROVIDERS: Emergency Provider Emergency Medicine; PCP Nurse Practitioner Family; Referring Provider Emergency Medicine; Visit Provider Emergency Medicine
DX: K29.00 Acute gastritis without bleeding (principal); J44.9 Chronic obstructive pulmonary disease, unspecified; E11.42 Type 2 diabetes mellitus with diabetic polyneuropathy; R55 Syncope and collapse; I10 Essential (primary) hypertension; I25.10 Atherosclerotic heart disease of native coronary artery without angina pectoris; I25.2 Old myocardial infarction; Z86.73 Personal history of transient ischemic attack (TIA), and cerebral infarction without residual deficits
CPT/HCPCS: 70450; 71045; 80048; 84484; 85025; 93005; 96361; 96374; 96376; 99285; A4216; J2405

== ENCOUNTER → 2025-01-25 | Outpatient (CLI) | payer MEDICARE, OTHER, SELFPAY ==
[2025-01-25 10:54] LABS: Anion Gap 15 (5-15); BUN 19 mg/dL (4-19); BUN/Creat Ratio 18.5 RATIO (10-20); Calcium,Total 9.8 mg/dL (7.6-11.0); Carbon Dioxide 23.8 mmol/L (21.0-32.0); Chloride 99 mmol/L (98-108); Creatinine, Serum 1.05 mg/dL (0.70-1.20); EST Glomerular Filtration Rate 70 (>60); Glucose 129 mg/dL (70-99); Sodium Level 137 mmol/L (133-145)
== END | disposition home or self-care (01) ==
LOC: MTLAB 07:17
PROVIDERS: Nurse Practitioner Family; PCP Nurse Practitioner Family; Referring Provider Nurse Practitioner; Visit Provider Nurse Practitioner
DX: C61 Malignant neoplasm of prostate (principal); I10 Essential (primary) hypertension; I25.10 Atherosclerotic heart disease of native coronary artery without angina pectoris; I35.1 Nonrheumatic aortic (valve) insufficiency
CPT/HCPCS: 36415; 80048; 84153

== ENCOUNTER → 2025-03-02 | Outpatient (CLI) | payer MEDICARE, OTHER, SELFPAY ==
--- NOTE | 2025-03-02 08:41 | NM_ITS ---
PROCEDURE: BONE SCAN WHOLE BODY 03/02/2025 REASON FOR EXAM: PROSTATE CA TECHNIQUE: Blood flow, blood pool, and delayed phase imaging of the whole-body after radiopharmaceutical administration RADIOPHARMACEUTICAL: 27 mCi Technetium-99m MDP IV COMPARISON: None FINDINGS: Whole-body delayed images were obtained in anterior and posterior projection. Renal activity is visible. There is no suspicious abnormal increased or decreased activity to suggest bony metastatic disease. There is mild increased activity at the right and left AC joint and shoulder and right and left knee, medial compartment, consistent with degenerative change. NM/Bone Scan Whole Body IMPRESSION: There is no suspicious radiotracer activity to suggest bony metastatic disease. Reading Location: [facility]
== END | disposition home or self-care (01) ==
LOC: NM 08:34
PROVIDERS: PCP Nurse Practitioner Family; Referring Provider Urology; Visit Provider Urology
DX: C61 Malignant neoplasm of prostate (principal)
CPT/HCPCS: 78306; A9503

== ENCOUNTER → 2025-06-19 | Outpatient (CLI) | payer MEDICARE, OTHER, SELFPAY ==
[2025-06-19 10:22] LABS: Hematocrit 45.9 % (40-54); Hemoglobin 15.2 g/dL (13.0-16.5); Immature Granulocytes Count 0.000 X10^3/uL (0.0-0.0); Mean Corp Hgb Conc 33.1 g/dL (32-36); Mean Corpuscular Volume 84.8 fL (80-94); Mean Platelet Vol. 9.5 fl (6.2-12.0); NRBC Flagged by Analyzer 0 % (0-5); Platelet Count 226 K/mm3 (150-450); RBC Distribution Width CV 13.6 % (11.6-14.6); RBC Distribution Width SD 42.3 fl (35.1-43.9); Red Blood Count 5.41 M/mm3 (4.6-6.2); White Blood Count 6.9 K/mm3 (4.4-11.0)
[2025-06-19 11:43] LABS: AST(SGOT) 36 U/L (<=37); Alanine Aminotransfer ALT/SGPT 52 U/L (<=46); Albumin, Serum 4.3 g/dL (3.4-4.8); Alkaline Phosphatase 138 U/L (40-129); Anion Gap 12 (5-15); BUN 13 mg/dL (4-19); BUN/Creat Ratio 15.9 RATIO (10-20); Calcium,Total 9.6 mg/dL (7.6-11.0); Carbon Dioxide 24.9 mmol/L (21.0-32.0); Chloride 103 mmol/L (98-108); Cholesterol 87 mg/dL (<=200); Globulin 3.6 g/dL (2.2-4.2); Glucose 108 mg/dL (70-99); Low Density Lipoprotein Calc. 23 mg/dL; Potassium 4.2 mmol/L (3.3-5.1); Triglycerides 131 mg/dL; Very Low Density Lipoprotein 26 mg/dL (5-40); cholesterol:hdl ratio screen 2.29
== END | disposition home or self-care (01) ==
LOC: MTLAB 08:13
PROVIDERS: PCP Nurse Practitioner Family; Referring Provider Nurse Practitioner Family; Visit Provider Nurse Practitioner Family
DX: E78.1 Pure hyperglyceridemia (principal); E11.42 Type 2 diabetes mellitus with diabetic polyneuropathy; I10 Essential (primary) hypertension
CPT/HCPCS: 36415; 80053; 80061; 85025

== ENCOUNTER → 2025-09-12 | Outpatient (CLI) | payer MEDICARE, OTHER, SELFPAY ==
[2025-09-12 18:13] LABS: PSA,Total- Diagnostic 8.67 ng/mL (0.00-4.00)
== END | disposition home or self-care (01) ==
LOC: MTLAB 14:45
PROVIDERS: PCP Nurse Practitioner Family; Referring Provider Urology; Visit Provider Urology
DX: C61 Malignant neoplasm of prostate (principal)
CPT/HCPCS: 36415; 84153

== ENCOUNTER → 2025-10-02 | Outpatient (CLI) | payer MEDICARE, OTHER, SELFPAY ==
[2025-10-02 10:04] LABS: Hematocrit 45.5 % (40-54); Hemoglobin 14.8 g/dL (13.0-16.5); Immature Granulocytes Count 0.020 X10^3/uL (0.0-0.0); Mean Corp Hgb Conc 32.5 g/dL (32-36); Mean Corpuscular Volume 85.0 fL (80-94); Mean Platelet Vol. 9.1 fl (6.2-12.0); NRBC Flagged by Analyzer 0 % (0-5); Platelet Count 249 K/mm3 (150-450); RBC Distribution Width CV 13.3 % (11.6-14.6); RBC Distribution Width SD 41.5 fl (35.1-43.9); Red Blood Count 5.35 M/mm3 (4.6-6.2); White Blood Count 7.0 K/mm3 (4.4-11.0)
[2025-10-02 10:16] LABS: Creatinine, Urine (random) 148.00 mg/dL (39.00-259.00); Microalbumin,Random Urine < 12.0 mg/L (<20 mg/L)
[2025-10-02 10:38] LABS: AST(SGOT) 36 U/L (<=37); Alanine Aminotransfer ALT/SGPT 51 U/L (<=46); Albumin, Serum 4.2 g/dL (3.4-4.8); Alkaline Phosphatase 149 U/L (40-129); Anion Gap 11 (7-18); BUN 22 mg/dL (4-19); BUN/Creat Ratio 23.7 RATIO (10-20); Calcium,Total 9.5 mg/dL (7.6-11.0); Carbon Dioxide 26.7 mmol/L (20.0-29.0); Chloride 103 mmol/L (96-106); Cholesterol 90 mg/dL (<=200); Globulin 3.7 g/dL (2.2-4.2); Glucose 129 mg/dL (70-99); Low Density Lipoprotein Calc. 33 mg/dL; Potassium 4.2 mmol/L (3.5-5.1); Triglycerides 105 mg/dL; Very Low Density Lipoprotein 21 mg/dL (5-40); cholesterol:hdl ratio screen 2.37
== END | disposition home or self-care (01) ==
LOC: MTLAB 08:19
PROVIDERS: PCP Nurse Practitioner Family; Referring Provider Nurse Practitioner Family; Visit Provider Nurse Practitioner Family
DX: E11.9 Type 2 diabetes mellitus without complications (principal); E78.5 Hyperlipidemia, unspecified
CPT/HCPCS: 36415; 80053; 80061; 82043; 82570; 83036; 84443; 85025